=== PATIENT | female | born 1935 | race Caucasian/White ===

== ENCOUNTER 2017-08-22 14:41 | Inpatient (IN) ==
[2017-08-22] MEDS ORDERED: ONDANSETRON 4 MG/2 ML VIAL IV PRN (16:09)
[2017-08-22] MEDS ORDERED: ACETAMINOPHEN 325 MG TABLET PO PRN (16:09)
[2017-08-22] MEDS ORDERED: MELOXICAM 7.5 MG TABLET PO PRN (17:41)
[2017-08-22 18:08] LABS: Basophils # 0.1 10*3/uL (0.0-0.2); Basophils % 0.9 % (0.0-0.8); Eosinophils # 0.6 10*3/uL (0.0-0.87); Eosinophils % 11.1 % (0.00-10.9); Hemoglobin 12.5 GM/DL (12.0-16.0); Immature Granulocytes % 0.6 %; Immature Granulocytes Absolute 0.03 #; Lymphocytes # 0.9 10*3/uL (1.4-4.0); Lymphocytes % 16.3 % (21.3-54.2); Mean Corpuscular HGB Conc 33.8 GM/DL (32-36); Mean Corpuscular Hemoglobin 31 PG (27-34); Mean Corpuscular Volume 91.4 FL (87-102); Monocytes # 0.5 10*3/uL (0.11-0.8); Monocytes % 9.5 % (1.7-12.7); Neutrophils # 3.3 10*3/uL (1.4-7.4); Neutrophils % 61.6 % (38.7-73.9); Platelet Count 206 T/CUMM (130-400); Red Blood Count 4.05 MC/CUMM (3.8-5.5); Red Cell Distribution Width 14.1 % (9.3-17.3); White Blood Count 5.4 T/CUMM (4-12)
[2017-08-22 18:27] LABS: Albumin 3.7 G/DL (3.4-5.0); Bilirubin,Total 0.9 MG/DL (0.2-1.0); Calcium 9.2 MG/DL (8.5-10.1); Osmolality,Calculated 279.5 MOS/KG (273-304); Total Protein 7.3 G/DL (6.4-8.3)
[2017-08-22] MEDS ORDERED: ALBUTEROL 2.5 MG/3 ML NEB RESP TX SCH (19:00)
[2017-08-22] MEDS ORDERED: IPRATROPIUM 500 MCG/2.5 ML NEB RESP TX SCH (19:00)
[2017-08-22] MEDS: methylPREDNISolone SOD SUC 40 MG/1 ML VIAL IV SCH (19:50)
[2017-08-22] MEDS: LEVOFLOXACIN INJ 500 MG in PREMIX 1 EACH IV SCH (19:50)
[2017-08-22] MEDS: SODIUM CHLORIDE 0.45% 1,000 ML IV SCH (19:50)
[2017-08-22] MEDS: ALBUTEROL/IPRATROPIUM 3 ML NEB RESP TX SCH (20:09)
[2017-08-22 20:31] LABS: Apearance,Urine Slightly Hazy (Clear); Bilirubin,Urine Negative (Negative); Blood, Urine Negative (Negative); Glucose,Urine (UA) Negative (Negative); Ketones,Urine Negative (Negative); Mucus,Urine Occasional /LPF (Occasional); Nitrite,Urine Negative (Negative); Protein,Urine Negative; Squamous Epithelial Cell,Urine Occasional /HPF (0-10); Urine Color Yellow (Yellow); Urine Specific Gravity 1.011 (1.001-1.035); Urine Urobilinogen < 2.0 EU/DL (0.2-1.0); WBC,Urine <1 /HPF (0-6)
[2017-08-22] MEDS: HYDROcodone/HOMATROPINE 5 ML UDCUP PO PRN (21:00)
[2017-08-22] MEDS: DOCUSATE SODIUM 100 MG CAPSULE PO SCH (21:01)
[2017-08-22] MEDS: LOSARTAN 50 MG TABLET PO SCH (21:01)
[2017-08-22] MEDS: ASPIRIN EC 81 MG TABLET PO SCH (21:01)
[2017-08-22] MEDS: amLODIPine 5 MG TABLET PO SCH (21:01)
[2017-08-22] MEDS: MONTELUKAST 10 MG TABLET PO SCH (21:01)
[2017-08-22] MEDS: ENOXAPARIN 40 MG/0.4 ML SYRINGE SUBCUT SCH (21:01)
[2017-08-22 21:16] LABS: Eosinophils 7 % (0-10); Lymphocytes 12 % (20-55); Platelet Estimate Adequate; Segmented Neutrophils 76 % (50-85); Total Cells Counted 100
[2017-08-22 21:17] LABS: Polychromasia Few
[2017-08-23] MEDS: ALBUTEROL/IPRATROPIUM 3 ML NEB RESP TX SCH ×4 (00:33→19:00)
[2017-08-23] MEDS: methylPREDNISolone SOD SUC 40 MG/1 ML VIAL IV SCH ×3 (01:46→17:25)
[2017-08-23] MEDS: HYDROcodone/HOMATROPINE 5 ML UDCUP PO PRN ×2 (02:32→21:24)
[2017-08-23] MEDS: LEVOTHYROXINE 125 MCG TABLET PO SCH (06:14)
[2017-08-23 06:47] LABS: CKMB % 1.4 %
[2017-08-23] MEDS ORDERED: NON-FORMULARY MEDICATION (Fluticasone/Vilanterol [Breo Ellipta 200-25 Mcg Inh] 1 PUFF) INH SCH (09:00)
[2017-08-23] MEDS: CHOLECALCIFEROL 1,000 UNIT TABLET PO SCH (09:22)
[2017-08-23] MEDS: DOCUSATE SODIUM 100 MG CAPSULE PO SCH ×2 (09:23→21:24)
[2017-08-23] MEDS: PANTOPRAZOLE 40 MG TABLET PO SCH (09:23)
[2017-08-23] MEDS: MAGNESIUM GLUCONATE 500 MG TABLET PO SCH (09:23)
[2017-08-23] MEDS: MULTIVITAMIN (CENTRUM) TABLET PO SCH (09:23)
[2017-08-23] MEDS: FUROSEMIDE 40 MG TABLET PO SCH (09:23)
[2017-08-23] MEDS: SELENIUM 200 MCG TABLET PO SCH (09:23)
[2017-08-23] MEDS: FLUoxetine 20 MG CAPSULE PO SCH (09:23)
[2017-08-23] MEDS: LOSARTAN 50 MG TABLET PO SCH (09:23)
[2017-08-23] MEDS: POTASSIUM CHLORIDE 10 MEQ TABLET PO SCH (09:23)
[2017-08-23] MEDS: ASPIRIN EC 81 MG TABLET PO SCH ×2 (09:24→21:24)
[2017-08-23] MEDS: amLODIPine 5 MG TABLET PO SCH ×2 (09:24→21:24)
[2017-08-23 09:39] LABS: CKMB % 1.6 %
[2017-08-23] MEDS ORDERED: BENZONATATE 100 MG CAPSULE PO ONE (10:52)
[2017-08-23 13:15] LABS: CKMB % 1.6 %
[2017-08-23] MEDS: hydrALAZINE 25 MG TABLET PO SCH ×2 (14:49→21:24)
[2017-08-23 16:34] LABS: CKMB % 1.6 %
[2017-08-23] MEDS: MAGNESIUM HYDROXIDE SUSP 30 ML UDCUP PO PRN (17:23)
[2017-08-23] MEDS: LEVOFLOXACIN INJ 500 MG in PREMIX 1 EACH IV SCH (17:24)
[2017-08-23] MEDS: traMADol 50 MG TABLET PO PRN (18:08)
[2017-08-23] MEDS: MONTELUKAST 10 MG TABLET PO SCH (21:24)
[2017-08-23] MEDS: ENOXAPARIN 40 MG/0.4 ML SYRINGE SUBCUT SCH (21:25)
[2017-08-23] MEDS: SODIUM CHLORIDE 0.45% 1,000 ML IV SCH (23:32)
[2017-08-24] MEDS: ALBUTEROL/IPRATROPIUM 3 ML NEB RESP TX SCH ×4 (00:49→19:27)
[2017-08-24] MEDS: methylPREDNISolone SOD SUC 40 MG/1 ML VIAL IV SCH ×3 (01:01→16:52)
[2017-08-24] MEDS: LEVOTHYROXINE 125 MCG TABLET PO SCH (06:28)
[2017-08-24] MEDS: NITROGLYCERIN SL 0.4 MG TABLET SL PRN ×2 (08:57→20:14)
[2017-08-24] MEDS: CHOLECALCIFEROL 1,000 UNIT TABLET PO SCH (09:09)
[2017-08-24] MEDS: hydrALAZINE 25 MG TABLET PO SCH ×3 (09:10→21:24)
[2017-08-24] MEDS: FUROSEMIDE 40 MG TABLET PO SCH (09:10)
[2017-08-24] MEDS: SELENIUM 200 MCG TABLET PO SCH (09:10)
[2017-08-24] MEDS: ASPIRIN EC 81 MG TABLET PO SCH ×2 (09:10→21:23)
[2017-08-24] MEDS: PANTOPRAZOLE 40 MG TABLET PO SCH (09:11)
[2017-08-24] MEDS: FLUoxetine 20 MG CAPSULE PO SCH (09:11)
[2017-08-24] MEDS: DOCUSATE SODIUM 100 MG CAPSULE PO SCH ×2 (09:12→21:23)
[2017-08-24] MEDS: POTASSIUM CHLORIDE 10 MEQ TABLET PO SCH (09:12)
[2017-08-24] MEDS: MAGNESIUM GLUCONATE 500 MG TABLET PO SCH (09:12)
[2017-08-24] MEDS: MULTIVITAMIN (CENTRUM) TABLET PO SCH (09:13)
[2017-08-24] MEDS: amLODIPine 5 MG TABLET PO SCH ×2 (10:39→21:24)
[2017-08-24] MEDS: HYDROcodone/HOMATROPINE 5 ML UDCUP PO PRN ×2 (10:45→16:48)
[2017-08-24] MEDS: SODIUM CHLORIDE 0.45% 1,000 ML IV SCH (10:46)
[2017-08-24 13:28] LABS: Calcium 8.6 MG/DL (8.5-10.1); Osmolality,Calculated 279.7 MOS/KG (273-304); Potassium 3.5 MMOL/L (3.5-5.1); Thyroid Stimulating Hormone 1.92 uIU/ml (0.358-3.74)
[2017-08-24] MEDS: BENZONATATE 100 MG CAPSULE PO PRN (14:42)
[2017-08-24] MEDS: LEVOFLOXACIN INJ 500 MG in PREMIX 1 EACH IV SCH (16:51)
[2017-08-24] MEDS: ENOXAPARIN 40 MG/0.4 ML SYRINGE SUBCUT SCH (21:21)
[2017-08-24] MEDS: MONTELUKAST 10 MG TABLET PO SCH (21:23)
[2017-08-24] MEDS: TEMAZEPAM 15 MG CAPSULE PO PRN (21:24)
[2017-08-25] MEDS: BUDESONIDE/FORMOTEROL 160-4.5 INHALER 6 GM INH SCH ×2 (00:20→09:27)
[2017-08-25] MEDS: methylPREDNISolone SOD SUC 40 MG/1 ML VIAL IV SCH ×3 (00:23→17:08)
[2017-08-25] MEDS: ALBUTEROL/IPRATROPIUM 3 ML NEB RESP TX SCH ×4 (01:32→19:53)
[2017-08-25] MEDS: HYDROcodone/HOMATROPINE 5 ML UDCUP PO PRN ×4 (01:53→23:20)
[2017-08-25] MEDS: LEVOTHYROXINE 125 MCG TABLET PO SCH (06:18)
[2017-08-25 06:22] LABS: Calcium 8.8 MG/DL (8.5-10.1); Osmolality,Calculated 283.5 MOS/KG (273-304)
[2017-08-25] MEDS: amLODIPine 5 MG TABLET PO SCH ×2 (09:26→21:09)
[2017-08-25] MEDS: PANTOPRAZOLE 40 MG TABLET PO SCH (09:26)
[2017-08-25] MEDS: POTASSIUM CHLORIDE 10 MEQ TABLET PO SCH (09:26)
[2017-08-25] MEDS: hydrALAZINE 25 MG TABLET PO SCH ×3 (09:26→21:09)
[2017-08-25] MEDS: FLUoxetine 20 MG CAPSULE PO SCH (09:26)
[2017-08-25] MEDS: CHOLECALCIFEROL 1,000 UNIT TABLET PO SCH (09:26)
[2017-08-25] MEDS: MULTIVITAMIN (CENTRUM) TABLET PO SCH (09:26)
[2017-08-25] MEDS: DOCUSATE SODIUM 100 MG CAPSULE PO SCH ×2 (09:26→21:09)
[2017-08-25] MEDS: SELENIUM 200 MCG TABLET PO SCH (09:26)
[2017-08-25] MEDS: MAGNESIUM GLUCONATE 500 MG TABLET PO SCH (09:26)
[2017-08-25] MEDS: FUROSEMIDE 40 MG TABLET PO SCH (09:26)
[2017-08-25] MEDS: ASPIRIN EC 81 MG TABLET PO SCH ×2 (09:27→21:09)
[2017-08-25] MEDS: ALBUTEROL 2.5 MG/3 ML NEB RESP TX PRN (10:04)
[2017-08-25] MEDS: traMADol 50 MG TABLET PO PRN (11:53)
[2017-08-25] MEDS: BENZONATATE 100 MG CAPSULE PO PRN (14:44)
[2017-08-25] MEDS: LEVOFLOXACIN INJ 500 MG in PREMIX 1 EACH IV SCH (17:10)
[2017-08-25] MEDS: MAGNESIUM HYDROXIDE SUSP 30 ML UDCUP PO PRN (21:09)
[2017-08-25] MEDS: TEMAZEPAM 15 MG CAPSULE PO PRN (21:09)
[2017-08-25] MEDS: MONTELUKAST 10 MG TABLET PO SCH (21:09)
[2017-08-25] MEDS: ENOXAPARIN 40 MG/0.4 ML SYRINGE SUBCUT SCH (21:11)
[2017-08-25] MEDS: NON-FORMULARY MEDICATION (Fluticasone/Vilanterol [Breo Ellipta 200-25 Mcg Inh] 1 PUFF) INH SCH (21:11)
[2017-08-26] MEDS: ALBUTEROL/IPRATROPIUM 3 ML NEB RESP TX SCH ×4 (00:08→18:50)
[2017-08-26] MEDS: methylPREDNISolone SOD SUC 40 MG/1 ML VIAL IV SCH ×3 (00:13→17:55)
[2017-08-26] MEDS: BENZONATATE 100 MG CAPSULE PO PRN ×3 (04:42→21:37)
[2017-08-26] MEDS: LEVOTHYROXINE 125 MCG TABLET PO SCH (06:14)
[2017-08-26] MEDS: MAGNESIUM GLUCONATE 500 MG TABLET PO SCH (08:08)
[2017-08-26] MEDS: MULTIVITAMIN (CENTRUM) TABLET PO SCH (08:08)
[2017-08-26] MEDS: POTASSIUM CHLORIDE 10 MEQ TABLET PO SCH (08:09)
[2017-08-26] MEDS: SELENIUM 200 MCG TABLET PO SCH (08:09)
[2017-08-26] MEDS: CHOLECALCIFEROL 1,000 UNIT TABLET PO SCH (08:09)
[2017-08-26] MEDS: PANTOPRAZOLE 40 MG TABLET PO SCH (08:10)
[2017-08-26] MEDS: DOCUSATE SODIUM 100 MG CAPSULE PO SCH ×2 (08:10→21:37)
[2017-08-26] MEDS: FLUoxetine 20 MG CAPSULE PO SCH (08:10)
[2017-08-26] MEDS: hydrALAZINE 25 MG TABLET PO SCH ×3 (08:10→21:37)
[2017-08-26] MEDS: amLODIPine 5 MG TABLET PO SCH ×2 (08:10→21:37)
[2017-08-26] MEDS: ASPIRIN EC 81 MG TABLET PO SCH ×2 (08:10→21:37)
[2017-08-26] MEDS: FUROSEMIDE 40 MG TABLET PO SCH (08:11)
[2017-08-26] MEDS: ALBUTEROL 2.5 MG/3 ML NEB RESP TX PRN ×2 (10:18→22:56)
[2017-08-26] MEDS: HYDROcodone/HOMATROPINE 5 ML UDCUP PO PRN ×2 (13:41→21:42)
[2017-08-26] MEDS: LEVOFLOXACIN INJ 500 MG in PREMIX 1 EACH IV SCH (17:55)
[2017-08-26] MEDS: PRAVASTATIN 20 MG TABLET PO SCH (21:37)
[2017-08-26] MEDS: ENOXAPARIN 40 MG/0.4 ML SYRINGE SUBCUT SCH (21:37)
[2017-08-26] MEDS: NON-FORMULARY MEDICATION (Fluticasone/Vilanterol [Breo Ellipta 200-25 Mcg Inh] 1 PUFF) INH SCH (21:37)
[2017-08-26] MEDS: MONTELUKAST 10 MG TABLET PO SCH (21:37)
[2017-08-26] MEDS: TEMAZEPAM 15 MG CAPSULE PO PRN (21:45)
[2017-08-27] MEDS ORDERED: ALBUTEROL/IPRATROPIUM 3 ML NEB RESP TX ONE
[2017-08-27] MEDS: methylPREDNISolone SOD SUC 40 MG/1 ML VIAL IV SCH ×3 (00:06→15:18)
[2017-08-27] MEDS: ALBUTEROL/IPRATROPIUM 3 ML NEB RESP TX SCH ×4 (00:30→18:30)
[2017-08-27] MEDS: LEVOTHYROXINE 125 MCG TABLET PO SCH (06:10)
[2017-08-27] MEDS: HYDROcodone/HOMATROPINE 5 ML UDCUP PO PRN ×3 (06:16→21:20)
[2017-08-27] MEDS: BENZONATATE 100 MG CAPSULE PO PRN (08:07)
[2017-08-27] MEDS: SELENIUM 200 MCG TABLET PO SCH (08:08)
[2017-08-27] MEDS: FUROSEMIDE 40 MG TABLET PO SCH (08:09)
[2017-08-27] MEDS: DOCUSATE SODIUM 100 MG CAPSULE PO SCH ×2 (08:09→21:20)
[2017-08-27] MEDS: FLUoxetine 20 MG CAPSULE PO SCH (08:09)
[2017-08-27] MEDS: MAGNESIUM GLUCONATE 500 MG TABLET PO SCH (08:09)
[2017-08-27] MEDS: MULTIVITAMIN (CENTRUM) TABLET PO SCH (08:09)
[2017-08-27] MEDS: POTASSIUM CHLORIDE 10 MEQ TABLET PO SCH (08:09)
[2017-08-27] MEDS: hydrALAZINE 25 MG TABLET PO SCH ×3 (08:09→21:20)
[2017-08-27] MEDS: PANTOPRAZOLE 40 MG TABLET PO SCH (08:09)
[2017-08-27] MEDS: CHOLECALCIFEROL 1,000 UNIT TABLET PO SCH (08:09)
[2017-08-27] MEDS: amLODIPine 5 MG TABLET PO SCH ×2 (08:09→21:20)
[2017-08-27] MEDS: ASPIRIN EC 81 MG TABLET PO SCH ×2 (08:10→21:20)
[2017-08-27] MEDS: ALBUTEROL 2.5 MG/3 ML NEB RESP TX PRN ×3 (10:35→23:45)
[2017-08-27] MEDS: traMADol 50 MG TABLET PO PRN (16:53)
[2017-08-27] MEDS: LEVOFLOXACIN INJ 500 MG in PREMIX 1 EACH IV SCH (17:27)
[2017-08-27] MEDS: LEVOFLOXACIN 500 MG TABLET PO SCH (17:51)
[2017-08-27] MEDS: ENOXAPARIN 40 MG/0.4 ML SYRINGE SUBCUT SCH (21:20)
[2017-08-27] MEDS: TEMAZEPAM 15 MG CAPSULE PO PRN (21:20)
[2017-08-27] MEDS: PRAVASTATIN 20 MG TABLET PO SCH (21:20)
[2017-08-27] MEDS: MONTELUKAST 10 MG TABLET PO SCH (21:20)
[2017-08-27] MEDS: NON-FORMULARY MEDICATION (Fluticasone/Vilanterol [Breo Ellipta 200-25 Mcg Inh] 1 PUFF) INH SCH (21:22)
[2017-08-27] MEDS: predniSONE 20 MG TABLET PO SCH (22:57)
[2017-08-28] MEDS: ALBUTEROL/IPRATROPIUM 3 ML NEB RESP TX SCH ×4 (01:11→19:29)
[2017-08-28] MEDS: ALBUTEROL 2.5 MG/3 ML NEB RESP TX PRN (05:20)
[2017-08-28] MEDS: LEVOTHYROXINE 125 MCG TABLET PO SCH (06:14)
[2017-08-28] MEDS ORDERED: GLYCOPYRROLATE 0.4 MG/2 ML VIAL IM ONE (07:00)
[2017-08-28] MEDS ORDERED: PROMETHAZINE 25 MG/1 ML VIAL IM ONE (07:00)
[2017-08-28] MEDS ORDERED: MEPERIDINE 50 MG/1 ML VIAL IM ONE (07:00)
[2017-08-28] MEDS ORDERED: LIDOCAINE 2% 20 ML VIAL RESP TX ONE (07:30)
[2017-08-28] MEDS ORDERED: MIDAZOLAM 2 MG/2 ML VIAL IV ONE (07:30)
[2017-08-28] MEDS ORDERED: LIDOCAINE 2% VISCOUS 100 ML BOTTLE SWISH/SPIT ONE (07:30)
[2017-08-28] MEDS ORDERED: LIDOCAINE 1% 20 ML VIAL MISC INJ ONE (07:30)
[2017-08-28] MEDS: POTASSIUM CHLORIDE 10 MEQ TABLET PO SCH (10:00)
[2017-08-28] MEDS: LEVOFLOXACIN 500 MG TABLET PO SCH (10:00)
[2017-08-28] MEDS: ASPIRIN EC 81 MG TABLET PO SCH ×2 (10:00→21:36)
[2017-08-28] MEDS: hydrALAZINE 25 MG TABLET PO SCH ×3 (10:00→21:38)
[2017-08-28] MEDS: DOCUSATE SODIUM 100 MG CAPSULE PO SCH ×2 (10:00→21:36)
[2017-08-28] MEDS: MULTIVITAMIN (CENTRUM) TABLET PO SCH (10:00)
[2017-08-28] MEDS: SELENIUM 200 MCG TABLET PO SCH (10:01)
[2017-08-28] MEDS: FUROSEMIDE 40 MG TABLET PO SCH (10:01)
[2017-08-28] MEDS: predniSONE 20 MG TABLET PO SCH (10:01)
[2017-08-28] MEDS: FLUoxetine 20 MG CAPSULE PO SCH (10:01)
[2017-08-28] MEDS: amLODIPine 5 MG TABLET PO SCH ×2 (10:01→21:36)
[2017-08-28] MEDS: MAGNESIUM GLUCONATE 500 MG TABLET PO SCH (10:01)
[2017-08-28] MEDS: PANTOPRAZOLE 40 MG TABLET PO SCH (10:01)
[2017-08-28] MEDS: CHOLECALCIFEROL 1,000 UNIT TABLET PO SCH (10:02)
[2017-08-28] MEDS ORDERED: MIDAZOLAM 2 MG/2 ML VIAL ONE (12:18)
[2017-08-28] MEDS: TEMAZEPAM 15 MG CAPSULE PO PRN (21:35)
[2017-08-28] MEDS: traMADol 50 MG TABLET PO PRN (21:35)
[2017-08-28] MEDS: MONTELUKAST 10 MG TABLET PO SCH (21:35)
[2017-08-28] MEDS: PRAVASTATIN 20 MG TABLET PO SCH (21:37)
[2017-08-28] MEDS: NON-FORMULARY MEDICATION (Fluticasone/Vilanterol [Breo Ellipta 200-25 Mcg Inh] 1 PUFF) INH SCH (21:39)
[2017-08-28] MEDS: ENOXAPARIN 40 MG/0.4 ML SYRINGE SUBCUT SCH (21:41)
[2017-08-29] MEDS: ALBUTEROL/IPRATROPIUM 3 ML NEB RESP TX SCH ×4 (01:00→19:33)
[2017-08-29] MEDS: LEVOTHYROXINE 125 MCG TABLET PO SCH (06:39)
[2017-08-29] MEDS: CHOLECALCIFEROL 1,000 UNIT TABLET PO SCH (09:13)
[2017-08-29] MEDS: PANTOPRAZOLE 40 MG TABLET PO SCH (09:14)
[2017-08-29] MEDS: MULTIVITAMIN (CENTRUM) TABLET PO SCH (09:14)
[2017-08-29] MEDS: DOCUSATE SODIUM 100 MG CAPSULE PO SCH ×2 (09:14→22:08)
[2017-08-29] MEDS: LEVOFLOXACIN 500 MG TABLET PO SCH (09:14)
[2017-08-29] MEDS: ASPIRIN EC 81 MG TABLET PO SCH ×2 (09:14→22:09)
[2017-08-29] MEDS: SELENIUM 200 MCG TABLET PO SCH (09:14)
[2017-08-29] MEDS: FUROSEMIDE 40 MG TABLET PO SCH (09:14)
[2017-08-29] MEDS: MAGNESIUM GLUCONATE 500 MG TABLET PO SCH (09:14)
[2017-08-29] MEDS: POTASSIUM CHLORIDE 10 MEQ TABLET PO SCH (09:14)
[2017-08-29] MEDS: predniSONE 20 MG TABLET PO SCH (09:15)
[2017-08-29] MEDS: hydrALAZINE 25 MG TABLET PO SCH ×3 (09:15→22:08)
[2017-08-29] MEDS: amLODIPine 5 MG TABLET PO SCH ×2 (09:15→22:11)
[2017-08-29] MEDS: FLUoxetine 20 MG CAPSULE PO SCH (09:15)
[2017-08-29] MEDS: traMADol 50 MG TABLET PO PRN (09:18)
[2017-08-29] MEDS: TEMAZEPAM 15 MG CAPSULE PO PRN (22:07)
[2017-08-29] MEDS: PRAVASTATIN 20 MG TABLET PO SCH (22:08)
[2017-08-29] MEDS: MONTELUKAST 10 MG TABLET PO SCH (22:08)
[2017-08-29] MEDS: HYDROcodone/HOMATROPINE 5 ML UDCUP PO PRN (22:12)
[2017-08-29] MEDS: ENOXAPARIN 40 MG/0.4 ML SYRINGE SUBCUT SCH (22:12)
[2017-08-29] MEDS: NON-FORMULARY MEDICATION (Fluticasone/Vilanterol [Breo Ellipta 200-25 Mcg Inh] 1 PUFF) INH SCH (22:15)
[2017-08-30] MEDS: traMADol 50 MG TABLET PO PRN (01:41)
[2017-08-30] MEDS: LEVOTHYROXINE 125 MCG TABLET PO SCH (06:28)
[2017-08-30] MEDS: ALBUTEROL/IPRATROPIUM 3 ML NEB RESP TX SCH ×2 (06:57)
[2017-08-30 07:50] VITALS: BP 174/63
[2017-08-30] MEDS: SELENIUM 200 MCG TABLET PO SCH (09:19)
[2017-08-30] MEDS: CHOLECALCIFEROL 1,000 UNIT TABLET PO SCH (09:19)
[2017-08-30] MEDS: predniSONE 20 MG TABLET PO SCH (09:19)
[2017-08-30] MEDS: MULTIVITAMIN (CENTRUM) TABLET PO SCH (09:19)
[2017-08-30] MEDS: hydrALAZINE 25 MG TABLET PO SCH (09:19)
[2017-08-30] MEDS: amLODIPine 5 MG TABLET PO SCH (09:19)
[2017-08-30] MEDS: ASPIRIN EC 81 MG TABLET PO SCH (09:20)
[2017-08-30] MEDS: PANTOPRAZOLE 40 MG TABLET PO SCH (09:20)
[2017-08-30] MEDS: FLUoxetine 20 MG CAPSULE PO SCH (09:20)
[2017-08-30] MEDS: POTASSIUM CHLORIDE 10 MEQ TABLET PO SCH (09:20)
[2017-08-30] MEDS: FUROSEMIDE 40 MG TABLET PO SCH (09:20)
[2017-08-30] MEDS: LEVOFLOXACIN 500 MG TABLET PO SCH (09:20)
[2017-08-30] MEDS: DOCUSATE SODIUM 100 MG CAPSULE PO SCH (09:20)
[2017-08-30] MEDS: MAGNESIUM GLUCONATE 500 MG TABLET PO SCH (09:24)
== END 2017-08-30 10:10 | disposition home or self-care (01) | DRG 202 ==
LOC: N.2E 16:23
PROVIDERS: ADMIT Family Medicine; ATTEND Family Medicine

== ENCOUNTER 2017-12-15 10:49 | Inpatient (IN) ==
[2017-12-15] MEDS ORDERED: methylPREDNISolone SOD SUC 125 MG/2 ML VIAL IV STA (13:17)
[2017-12-15] MEDS ORDERED: ALBUTEROL/IPRATROPIUM 3 ML NEB RESP TX STA (13:17)
[2017-12-15 13:37] LABS: Basophils % 0.4 % (0.0-0.8); Eosinophils % 0.2 % (0.00-10.9); Hematocrit 35.8 VOL% (35.7-47.0); Hemoglobin 11.7 GM/DL (12.0-16.0); Immature Granulocytes % 1.6 %; Immature Granulocytes Absolute 0.17 #; Lymphocytes # 0.4 10*3/uL (1.4-4.0); Mean Corpuscular HGB Conc 32.7 GM/DL (32-36); Mean Corpuscular Hemoglobin 29 PG (27-34); Mean Corpuscular Volume 89.5 FL (87-102); Mean Platelet Volume 11.2 FL (9.6-12.0); Monocytes # 0.5 10*3/uL (0.11-0.8); Monocytes % 5.1 % (1.7-12.7); Neutrophils # 9.3 10*3/uL (1.4-7.4); Neutrophils % 88.7 % (38.7-73.9); Platelet Count 214 T/CUMM (130-400); Red Cell Distribution Width 13.9 % (9.3-17.3); White Blood Count 10.5 T/CUMM (4-12)
[2017-12-15 13:56] LABS: Albumin 3.6 G/DL (3.4-5.0); Calcium 8.6 MG/DL (8.5-10.1); Osmolality,Calculated 266.7 MOS/KG (273-304); Potassium 4.1 MMOL/L (3.5-5.1); Total Protein 6.9 G/DL (6.4-8.3)
[2017-12-15 14:00] LABS: Atypical Lymphocytes Few; Lymphocytes 8 % (20-55); Platelet Estimate Adequate; Segmented Neutrophils 89 % (50-85); Total Cells Counted 100
[2017-12-15] MEDS ORDERED: ONDANSETRON 4 MG/2 ML VIAL IV PRN (16:02)
[2017-12-15] MEDS ORDERED: PIPERACILLIN/TAZOBACTAM 3,375 MG in SODIUM CHLORIDE 0.9% 100 ML IV STA (16:02)
[2017-12-15] MEDS ORDERED: ACETAMINOPHEN 325 MG TABLET PO PRN ×2 (16:02→16:06)
[2017-12-15] MEDS ORDERED: NITROGLYCERIN SL 0.4 MG TABLET SL PRN (16:06)
[2017-12-15] MEDS ORDERED: MELOXICAM 7.5 MG TABLET PO PRN (16:06)
[2017-12-15] MEDS ORDERED: MAGNESIUM HYDROXIDE SUSP 30 ML UDCUP PO PRN (16:06)
[2017-12-15] MEDS ORDERED: methylPREDNISolone SOD SUC 125 MG/2 ML VIAL IV SCH (16:30)
[2017-12-15] MEDS: ALBUTEROL/IPRATROPIUM 3 ML NEB RESP TX SCH (19:41)
[2017-12-15] MEDS ORDERED: NON-FORMULARY MEDICATION (Fluticasone/Vilanterol [Breo Ellipta 200-25 Mcg Inh] 1 PUFF) INH SCH (21:00)
[2017-12-15] MEDS: DOCUSATE SODIUM 100 MG CAPSULE PO SCH (21:12)
[2017-12-15] MEDS: MONTELUKAST 10 MG TABLET PO SCH (21:12)
[2017-12-15] MEDS: guaiFENesin 200 MG/10 ML UDCUP PO PRN (21:12)
[2017-12-15] MEDS: MULTIVITAMIN (OCUVITE) TABLET PO SCH (21:12)
[2017-12-15] MEDS: PRAVASTATIN 20 MG TABLET PO SCH (21:13)
[2017-12-15] MEDS: ASPIRIN EC 81 MG TABLET PO SCH (21:13)
[2017-12-15] MEDS: LOSARTAN 50 MG TABLET PO SCH (21:13)
[2017-12-15] MEDS: hydrALAZINE 25 MG TABLET PO SCH (21:13)
[2017-12-15] MEDS: traMADol 50 MG TABLET PO PRN (21:15)
[2017-12-16] MEDS: ALBUTEROL/IPRATROPIUM 3 ML NEB RESP TX SCH ×4 (00:56→19:32)
[2017-12-16] MEDS: guaiFENesin 200 MG/10 ML UDCUP PO PRN ×2 (02:08→06:28)
[2017-12-16] MEDS: PIPERACILLIN/TAZOBACTAM 3,375 MG in SODIUM CHLORIDE 0.9% 100 ML IV SCH ×3 (02:09→17:08)
[2017-12-16] MEDS: LEVOTHYROXINE 125 MCG TABLET PO SCH (06:21)
[2017-12-16] MEDS: ASPIRIN EC 81 MG TABLET PO SCH ×2 (08:15→20:11)
[2017-12-16] MEDS: POTASSIUM CHLORIDE 10 MEQ TABLET PO SCH (08:15)
[2017-12-16] MEDS: SELENIUM 200 MCG TABLET PO SCH (08:15)
[2017-12-16] MEDS: FUROSEMIDE 40 MG TABLET PO SCH (08:15)
[2017-12-16] MEDS: MULTIVITAMIN (OCUVITE) TABLET PO SCH ×2 (08:15→20:11)
[2017-12-16] MEDS: hydrALAZINE 25 MG TABLET PO SCH ×3 (08:16→20:11)
[2017-12-16] MEDS: PANTOPRAZOLE 40 MG TABLET PO SCH (08:16)
[2017-12-16] MEDS: FLUoxetine 20 MG CAPSULE PO SCH (08:16)
[2017-12-16] MEDS: CHOLECALCIFEROL 1,000 UNIT TABLET PO SCH (08:16)
[2017-12-16] MEDS: MAGNESIUM OXIDE 400 MG TABLET PO SCH (08:16)
[2017-12-16] MEDS: MULTIVITAMIN (CENTRUM) TABLET PO SCH (08:16)
[2017-12-16] MEDS: LOSARTAN 50 MG TABLET PO SCH ×2 (08:16→20:11)
[2017-12-16] MEDS: DOCUSATE SODIUM 100 MG CAPSULE PO SCH ×2 (08:16→20:11)
[2017-12-16] MEDS ORDERED: PROMETHAZINE 25 MG/1 ML VIAL IM ONE (08:45)
[2017-12-16] MEDS ORDERED: GLYCOPYRROLATE 0.4 MG/2 ML VIAL IM ONE (08:45)
[2017-12-16] MEDS ORDERED: MEPERIDINE 50 MG/1 ML VIAL IM ONE (08:45)
[2017-12-16] MEDS: traMADol 50 MG TABLET PO PRN ×2 (08:47→20:11)
[2017-12-16] MEDS ORDERED: MIDAZOLAM 2 MG/2 ML VIAL ONE (08:58)
[2017-12-16] MEDS ORDERED: LIDOCAINE 1% 20 ML VIAL MISC INJ ONE (09:00)
[2017-12-16] MEDS ORDERED: LIDOCAINE 2% VISCOUS 100 ML BOTTLE SWISH/SPIT ONE (09:00)
[2017-12-16] MEDS ORDERED: MIDAZOLAM 2 MG/2 ML VIAL IV ONE (09:00)
[2017-12-16] MEDS ORDERED: NON-FORMULARY MEDICATION (Omeprazole [Prilosec] 20 MG) PO SCH (09:00)
[2017-12-16] MEDS ORDERED: LIDOCAINE 2% 20 ML VIAL RESP TX ONE (09:00)
[2017-12-16] MEDS: methylPREDNISolone SOD SUC 40 MG/1 ML VIAL IV SCH ×2 (09:06→17:07)
[2017-12-16] MEDS: PRAVASTATIN 20 MG TABLET PO SCH (20:11)
[2017-12-16] MEDS: MONTELUKAST 10 MG TABLET PO SCH (20:11)
[2017-12-17] MEDS: ALBUTEROL/IPRATROPIUM 3 ML NEB RESP TX SCH ×2 (01:02→07:25)
[2017-12-17] MEDS: methylPREDNISolone SOD SUC 40 MG/1 ML VIAL IV SCH ×2 (01:06→08:19)
[2017-12-17] MEDS: PIPERACILLIN/TAZOBACTAM 3,375 MG in SODIUM CHLORIDE 0.9% 100 ML IV SCH ×2 (01:07→09:02)
[2017-12-17] MEDS: LEVOTHYROXINE 125 MCG TABLET PO SCH (06:45)
[2017-12-17] MEDS: traMADol 50 MG TABLET PO PRN (06:47)
[2017-12-17] MEDS: MULTIVITAMIN (CENTRUM) TABLET PO SCH (08:19)
[2017-12-17] MEDS: FUROSEMIDE 40 MG TABLET PO SCH (08:19)
[2017-12-17] MEDS: LOSARTAN 50 MG TABLET PO SCH (08:19)
[2017-12-17] MEDS: hydrALAZINE 25 MG TABLET PO SCH (08:19)
[2017-12-17] MEDS: FLUoxetine 20 MG CAPSULE PO SCH (08:19)
[2017-12-17] MEDS: SELENIUM 200 MCG TABLET PO SCH (08:19)
[2017-12-17] MEDS: ASPIRIN EC 81 MG TABLET PO SCH (08:19)
[2017-12-17] MEDS: MULTIVITAMIN (OCUVITE) TABLET PO SCH (08:19)
[2017-12-17] MEDS: PANTOPRAZOLE 40 MG TABLET PO SCH (08:19)
[2017-12-17] MEDS: DOCUSATE SODIUM 100 MG CAPSULE PO SCH (08:19)
[2017-12-17] MEDS: POTASSIUM CHLORIDE 10 MEQ TABLET PO SCH (08:19)
[2017-12-17] MEDS: CHOLECALCIFEROL 1,000 UNIT TABLET PO SCH (08:19)
[2017-12-17] MEDS: MAGNESIUM OXIDE 400 MG TABLET PO SCH (08:19)
[2017-12-17 08:30] VITALS: BP 171/60
== END 2017-12-17 09:40 | disposition home or self-care (01) | DRG 167 ==
LOC: N.ED 10:49 → N.EDINP 16:02 → N.2E 16:40 → N.5E 17:32
PROVIDERS: ADMIT Family Medicine; ATTEND Family Medicine

== ENCOUNTER 2017-12-19 13:21 | Observation (INO) ==
[2017-12-19] MEDS ORDERED: ONDANSETRON 4 MG/2 ML VIAL IV STA (14:03)
[2017-12-19] MEDS ORDERED: HYDROmorphone 2 MG/1 ML VIAL IV STA (14:03)
[2017-12-19 14:20] LABS: Basophils % 0.3 % (0.0-0.8); Eosinophils # 0.1 10*3/uL (0.0-0.87); Eosinophils % 0.5 % (0.00-10.9); Hematocrit 40.4 VOL% (35.7-47.0); Hemoglobin 13.1 GM/DL (12.0-16.0); Immature Granulocytes % 1.9 %; Immature Granulocytes Absolute 0.21 #; Lymphocytes # 0.6 10*3/uL (1.4-4.0); Mean Corpuscular HGB Conc 32.4 GM/DL (32-36); Mean Corpuscular Hemoglobin 29 PG (27-34); Mean Corpuscular Volume 90.4 FL (87-102); Mean Platelet Volume 10.7 FL (9.6-12.0); Monocytes # 0.4 10*3/uL (0.11-0.8); Neutrophils # 9.7 10*3/uL (1.4-7.4); Neutrophils % 88.3 % (38.7-73.9); Platelet Count 243 T/CUMM (130-400); Red Blood Count 4.47 MC/CUMM (3.8-5.5); Red Cell Distribution Width 13.9 % (9.3-17.3)
[2017-12-19 14:40] LABS: Albumin 3.7 G/DL (3.4-5.0); Bilirubin,Total 0.6 MG/DL (0.2-1.0); Calcium 8.9 MG/DL (8.5-10.1); Potassium 4.3 MMOL/L (3.5-5.1); Total Protein 7.1 G/DL (6.4-8.3)
[2017-12-19 14:43] LABS: INR 0.9; PT Patient Result 9.9 SECS; Partial Thromboplastin Time 24.9 SECS (0-40)
[2017-12-19] MEDS ORDERED: ALBUTEROL 2.5 MG/3 ML NEB RESP TX PRN (18:22)
[2017-12-19] MEDS ORDERED: NITROGLYCERIN SL 0.4 MG TABLET SL PRN (18:22)
[2017-12-19] MEDS ORDERED: MELOXICAM 7.5 MG TABLET PO PRN (18:22)
[2017-12-19] MEDS ORDERED: guaiFENesin 200 MG/10 ML UDCUP PO PRN (18:22)
[2017-12-19] MEDS ORDERED: ACETAMINOPHEN 325 MG TABLET PO PRN ×2 (18:22)
[2017-12-19] MEDS: SODIUM CHLORIDE 0.9% 1,000 ML IV SCH (18:29)
[2017-12-19] MEDS ORDERED: cloNIDine 0.1 MG TABLET PO PRN (18:50)
[2017-12-19] MEDS: HYDROmorphone 2 MG/1 ML VIAL IV PRN (19:44)
[2017-12-19] MEDS: LOSARTAN 50 MG TABLET PO SCH (20:42)
[2017-12-19] MEDS: AMOXICILLIN/CLAV 875 MG TABLET PO SCH (20:42)
[2017-12-19] MEDS: ONDANSETRON 4 MG/2 ML VIAL IV PRN (20:43)
[2017-12-19] MEDS: ASPIRIN EC 81 MG TABLET PO SCH (20:43)
[2017-12-19] MEDS: MULTIVITAMIN (OCUVITE) TABLET PO SCH ×2 (20:43→20:44)
[2017-12-19] MEDS: DOCUSATE SODIUM 100 MG CAPSULE PO SCH (20:43)
[2017-12-19] MEDS: MONTELUKAST 10 MG TABLET PO SCH (20:43)
[2017-12-19] MEDS: PRAVASTATIN 40 MG TABLET PO SCH (20:43)
[2017-12-19] MEDS: hydrALAZINE 25 MG TABLET PO SCH (20:43)
[2017-12-19] MEDS ORDERED: Fluticasone/Vilanterol [Breo Ellipta 200-25 Mcg Inh] INH SCH (21:00)
[2017-12-19] MEDS: ALBUTEROL/IPRATROPIUM 3 ML NEB RESP TX SCH (23:09)
[2017-12-20] MEDS: HYDROmorphone 2 MG/1 ML VIAL IV PRN ×2 (01:20→09:43)
[2017-12-20] MEDS: ONDANSETRON 4 MG/2 ML VIAL IV PRN ×2 (04:14→10:24)
[2017-12-20] MEDS: LEVOTHYROXINE 125 MCG TABLET PO SCH (06:25)
[2017-12-20] MEDS: ALBUTEROL/IPRATROPIUM 3 ML NEB RESP TX SCH ×3 (06:49→22:58)
[2017-12-20] MEDS: POTASSIUM CHLORIDE 10 MEQ TABLET PO SCH (08:13)
[2017-12-20] MEDS: SODIUM CHLORIDE 0.9% 1,000 ML IV SCH (08:13)
[2017-12-20] MEDS: FLUoxetine 20 MG CAPSULE PO SCH (08:14)
[2017-12-20] MEDS: SELENIUM 200 MCG TABLET PO SCH (08:14)
[2017-12-20] MEDS: AMOXICILLIN/CLAV 875 MG TABLET PO SCH ×2 (08:14→21:01)
[2017-12-20] MEDS: ASPIRIN EC 81 MG TABLET PO SCH ×2 (08:14→21:02)
[2017-12-20] MEDS: MAGNESIUM OXIDE 400 MG TABLET PO SCH (08:14)
[2017-12-20] MEDS: MULTIVITAMIN (OCUVITE) TABLET PO SCH ×2 (08:14→21:01)
[2017-12-20] MEDS: DOCUSATE SODIUM 100 MG CAPSULE PO SCH ×2 (08:14→21:01)
[2017-12-20] MEDS: predniSONE 20 MG TABLET PO SCH (08:14)
[2017-12-20] MEDS: PANTOPRAZOLE 40 MG TABLET PO SCH (08:14)
[2017-12-20] MEDS: LOSARTAN 50 MG TABLET PO SCH ×2 (08:14→21:02)
[2017-12-20] MEDS: FUROSEMIDE 40 MG TABLET PO SCH (08:15)
[2017-12-20] MEDS: MULTIVITAMIN (CENTRUM) TABLET PO SCH (08:15)
[2017-12-20] MEDS: CHOLECALCIFEROL 1,000 UNIT TABLET PO SCH (08:15)
[2017-12-20] MEDS: hydrALAZINE 25 MG TABLET PO SCH ×3 (08:15→21:02)
[2017-12-20] MEDS: GABAPENTIN 300 MG CAPSULE PO SCH (21:01)
[2017-12-20] MEDS: traMADol 50 MG TABLET PO PRN (21:01)
[2017-12-20] MEDS: MONTELUKAST 10 MG TABLET PO SCH (21:01)
[2017-12-20] MEDS: PRAVASTATIN 40 MG TABLET PO SCH (21:02)
[2017-12-21] MEDS: SODIUM CHLORIDE 0.9% 1,000 ML IV SCH (01:21)
[2017-12-21] MEDS: LEVOTHYROXINE 125 MCG TABLET PO SCH (06:33)
[2017-12-21] MEDS: ALBUTEROL/IPRATROPIUM 3 ML NEB RESP TX SCH (07:04)
[2017-12-21] MEDS: FUROSEMIDE 40 MG TABLET PO SCH (09:41)
[2017-12-21] MEDS: GABAPENTIN 300 MG CAPSULE PO SCH (09:41)
[2017-12-21] MEDS: MULTIVITAMIN (OCUVITE) TABLET PO SCH (09:41)
[2017-12-21] MEDS: DOCUSATE SODIUM 100 MG CAPSULE PO SCH (09:42)
[2017-12-21] MEDS: AMOXICILLIN/CLAV 875 MG TABLET PO SCH (09:42)
[2017-12-21] MEDS: MULTIVITAMIN (CENTRUM) TABLET PO SCH (09:42)
[2017-12-21] MEDS: SELENIUM 200 MCG TABLET PO SCH (09:42)
[2017-12-21] MEDS: PANTOPRAZOLE 40 MG TABLET PO SCH (09:43)
[2017-12-21] MEDS: hydrALAZINE 25 MG TABLET PO SCH (09:43)
[2017-12-21] MEDS: CHOLECALCIFEROL 1,000 UNIT TABLET PO SCH (09:43)
[2017-12-21] MEDS: traMADol 50 MG TABLET PO PRN (09:44)
[2017-12-21] MEDS: predniSONE 20 MG TABLET PO SCH (09:44)
[2017-12-21] MEDS: MAGNESIUM OXIDE 400 MG TABLET PO SCH (09:44)
[2017-12-21] MEDS: FLUoxetine 20 MG CAPSULE PO SCH (09:44)
[2017-12-21] MEDS: ASPIRIN EC 81 MG TABLET PO SCH (09:44)
[2017-12-21] MEDS: POTASSIUM CHLORIDE 10 MEQ TABLET PO SCH (09:45)
[2017-12-21] MEDS: LOSARTAN 50 MG TABLET PO SCH (09:46)
[2017-12-21 13:23] VITALS: BP 140/82
== END 2017-12-21 15:05 | disposition home health service (06) ==
LOC: N.ED 13:21 → N.EDINP 13:21 → N.2E 17:44
PROVIDERS: ADMIT Family Medicine; ATTEND Family Medicine

== ENCOUNTER 2018-08-09 09:36 | Inpatient (IN) ==
[2018-08-09] MEDS ORDERED: MEROPENEM 1,000 MG in SODIUM CHLORIDE 0.9% 100 ML IV STA (09:48)
[2018-08-09] MEDS ORDERED: SODIUM CHLORIDE 0.9% 1,000 ML IV STA (09:51)
[2018-08-09] MEDS ORDERED: MEROPENEM 1,000 MG VIAL IV ONE (10:00)
[2018-08-09] MEDS ORDERED: SODIUM CHLORIDE 0.9% 100 ML IV ONE (10:01)
[2018-08-09 10:23] LABS: Basophils % 0.3 % (0.0-0.8); Eosinophils % 0.2 % (0.00-10.9); Hematocrit 33.7 VOL% (35.7-47.0); Hemoglobin 10.8 GM/DL (12.0-16.0); Immature Granulocytes % 0.6 %; Immature Granulocytes Absolute 0.05 #; Lymphocytes # 0.3 10*3/uL (1.4-4.0); Lymphocytes % 3.6 % (21.3-54.2); Mean Corpuscular Volume 87.1 FL (87-102); Mean Platelet Volume 11.7 FL (9.6-12.0); Monocytes % 9.1 % (1.7-12.7); Neutrophils % 86.2 % (38.7-73.9); Platelet Count 118 T/CUMM (130-400); Red Blood Count 3.87 MC/CUMM (3.8-5.5); Red Cell Distribution Width 13.9 % (9.3-17.3); White Blood Count 8.9 T/CUMM (4-12)
[2018-08-09 10:43] LABS: Alanine Aminotransferase 21 U/L (13-56); Albumin 2.5 G/DL (3.4-5.0); Alkaline Phosphatase 102 U/L (45-117); Aspartate Amino Transferase 27 U/L (0-37); Blood Urea Nitrogen 24 MG/DL (7-18); Calcium 8.4 MG/DL (8.5-10.1); Glucose 148 MG/DL (74-106); Osmolality,Calculated 266.8 MOS/KG (273-304); Total Protein 5.4 G/DL (6.4-8.3)
[2018-08-09] MEDS ORDERED: ACETAMINOPHEN 325 MG TABLET PO PRN (11:20)
[2018-08-09] MEDS ORDERED: ONDANSETRON 4 MG/2 ML VIAL IV PRN ×2 (11:20→14:45)
[2018-08-09 11:23] LABS: Apearance,Urine CLOUDY (Clear); Bacteria,Urine Few /HPF (Few); Bilirubin,Urine Negative (Negative); Blood, Urine Negative (Negative); Glucose,Urine (UA) Negative (Negative); Ketones,Urine Negative (Negative); Nitrite,Urine Positive (Negative); Protein,Urine 100 MG/DL; RBC,Urine 26 /HPF (0-4); Urine Specific Gravity 1.014 (1.001-1.035); WBC,Urine 114 /HPF (0-6)
[2018-08-09] MEDS ORDERED: traMADol 50 MG TABLET PO PRN (11:25)
[2018-08-09 11:27] LABS: Urine Color Orange (Yellow)
[2018-08-09] MEDS ORDERED: NON-FORMULARY MEDICATION (Fluticasone Furoate-Vilanterol [Breo Ellipta] 1 PUFF) INH ONE (11:27)
[2018-08-09] MEDS ORDERED: OMALIZUMAB 150 MG VIAL SUBCUT SCH (11:30)
[2018-08-09] MEDS ORDERED: MEROPENEM 1,000 MG in SODIUM CHLORIDE 0.9% 100 ML IV SCH (11:30)
[2018-08-09] MEDS ORDERED: ENOXAPARIN 30 MG/0.3 ML SYRINGE SUBCUT SCH (11:30)
[2018-08-09] MEDS ORDERED: SODIUM CHLORIDE 0.9% 1,000 ML IV SCH (11:30)
[2018-08-09 12:32] LABS: Band Neutrophils 3 % (0-10); Lymphocytes 2 % (20-55); Segmented Neutrophils 90 % (50-85); Total Cells Counted 100
[2018-08-09 12:33] LABS: Hypochromasia 1+; Microcytosis Slight; Platelet Estimate Adequate
[2018-08-09] MEDS ORDERED: ALBUTEROL/IPRATROPIUM 3 ML NEB RESP TX SCH (15:00)
[2018-08-09] MEDS ORDERED: NITROGLYCERIN SL 0.4 MG TABLET SL PRN (15:11)
[2018-08-09] MEDS ORDERED: ALBUTEROL 2.5 MG/3 ML NEB RESP TX PRN (15:11)
[2018-08-09] MEDS: ENOXAPARIN 30 MG/0.3 ML SYRINGE SUBCUT SCH (17:22)
[2018-08-09] MEDS: SODIUM CHLORIDE 0.9% 1,000 ML IV SCH (17:22)
[2018-08-09] MEDS: ALBUTEROL/IPRATROPIUM 3 ML NEB RESP TX SCH (19:29)
[2018-08-09] MEDS: FLUTICASONE 220 MCG/PUFF INHALER 12 GM INH SCH (20:10)
[2018-08-09] MEDS: ACETAMINOPHEN 325 MG TABLET PO PRN (20:12)
[2018-08-09] MEDS: LOSARTAN 50 MG TABLET PO SCH (20:13)
[2018-08-09] MEDS: SIMVASTATIN 20 MG TABLET PO SCH (20:13)
[2018-08-09] MEDS: ASPIRIN EC 81 MG TABLET PO SCH (20:13)
[2018-08-09] MEDS: DOCUSATE SODIUM 100 MG CAPSULE PO SCH (20:13)
[2018-08-09] MEDS: MONTELUKAST 10 MG TABLET PO SCH (20:13)
[2018-08-09] MEDS ORDERED: ASPIRIN EC 81 MG TABLET PO SCH (21:00)
[2018-08-09] MEDS ORDERED: DOCUSATE SODIUM 100 MG CAPSULE PO SCH (21:00)
[2018-08-09] MEDS: MEROPENEM 1,000 MG in SODIUM CHLORIDE 0.9% 100 ML IV SCH (21:56)
[2018-08-10] MEDS: ALBUTEROL/IPRATROPIUM 3 ML NEB RESP TX SCH ×4 (01:05→19:13)
[2018-08-10 06:24] LABS: Osmolality,Calculated 273.1 MOS/KG (273-304)
[2018-08-10] MEDS: SODIUM CHLORIDE 0.9% 1,000 ML IV SCH (06:32)
[2018-08-10] MEDS ORDERED: PANTOPRAZOLE 40 MG TABLET PO SCH (09:00)
[2018-08-10] MEDS ORDERED: FUROSEMIDE 40 MG TABLET PO SCH ×2 (09:00)
[2018-08-10] MEDS ORDERED: CHOLECALCIFEROL 1,000 UNIT TABLET PO SCH (09:00)
[2018-08-10] MEDS ORDERED: FLUoxetine 20 MG CAPSULE PO SCH (09:00)
[2018-08-10] MEDS ORDERED: SELENIUM 200 MCG PO SCH (09:00)
[2018-08-10] MEDS: FUROSEMIDE 40 MG TABLET PO SCH (09:51)
[2018-08-10] MEDS: CHOLECALCIFEROL 1,000 UNIT TABLET PO SCH (09:51)
[2018-08-10] MEDS: POTASSIUM CHLORIDE 20 MEQ TABLET PO SCH (09:51)
[2018-08-10] MEDS: PANTOPRAZOLE 40 MG TABLET PO SCH (09:52)
[2018-08-10] MEDS: LEVOTHYROXINE 125 MCG TABLET PO SCH (09:52)
[2018-08-10] MEDS: MAGNESIUM OXIDE 400 MG TABLET PO SCH (09:52)
[2018-08-10] MEDS: LOSARTAN 50 MG TABLET PO SCH ×2 (09:52→21:47)
[2018-08-10] MEDS: ASPIRIN EC 81 MG TABLET PO SCH ×2 (09:52→21:48)
[2018-08-10] MEDS: LORATADINE 10 MG TABLET PO SCH (09:52)
[2018-08-10] MEDS: FLUoxetine 20 MG CAPSULE PO SCH (09:52)
[2018-08-10] MEDS: MEROPENEM 1,000 MG in SODIUM CHLORIDE 0.9% 100 ML IV SCH ×2 (09:53→21:48)
[2018-08-10] MEDS: DOCUSATE SODIUM 100 MG CAPSULE PO SCH ×2 (09:53→21:47)
[2018-08-10] MEDS: FLUTICASONE 220 MCG/PUFF INHALER 12 GM INH SCH ×2 (09:53→21:46)
[2018-08-10] MEDS: ENOXAPARIN 30 MG/0.3 ML SYRINGE SUBCUT SCH (15:13)
[2018-08-10] MEDS ORDERED: ALUMINUM/MAGNES/SIMETH MAX STR 30 ML UDCUP PO PRN (17:20)
[2018-08-10] MEDS: ACETAMINOPHEN 325 MG TABLET PO PRN (18:40)
[2018-08-10] MEDS: MONTELUKAST 10 MG TABLET PO SCH (21:47)
[2018-08-10] MEDS: SIMVASTATIN 20 MG TABLET PO SCH (21:47)
[2018-08-10] MEDS: traMADol 50 MG TABLET PO PRN (21:50)
[2018-08-11] MEDS: ALBUTEROL/IPRATROPIUM 3 ML NEB RESP TX SCH ×4 (00:27→19:04)
[2018-08-11] MEDS: LEVOTHYROXINE 125 MCG TABLET PO SCH (07:00)
[2018-08-11] MEDS ORDERED: SODIUM CHLORIDE 0.9% 500 ML IV ONE (07:31)
[2018-08-11] MEDS: SODIUM CHLORIDE 0.9% 1,000 ML IV SCH ×4 (09:00→21:36)
[2018-08-11] MEDS: traMADol 50 MG TABLET PO PRN ×2 (09:34→17:39)
[2018-08-11] MEDS: FLUTICASONE 220 MCG/PUFF INHALER 12 GM INH SCH ×2 (09:34→21:30)
[2018-08-11] MEDS: PANTOPRAZOLE 40 MG TABLET PO SCH (09:35)
[2018-08-11] MEDS: LORATADINE 10 MG TABLET PO SCH (09:35)
[2018-08-11] MEDS: FUROSEMIDE 40 MG TABLET PO SCH (09:35)
[2018-08-11] MEDS: MEROPENEM 1,000 MG in SODIUM CHLORIDE 0.9% 100 ML IV SCH ×2 (09:36→21:25)
[2018-08-11] MEDS: CHOLECALCIFEROL 1,000 UNIT TABLET PO SCH (09:36)
[2018-08-11] MEDS: DOCUSATE SODIUM 100 MG CAPSULE PO SCH ×2 (09:36→21:24)
[2018-08-11] MEDS: ASPIRIN EC 81 MG TABLET PO SCH ×2 (09:36→21:24)
[2018-08-11] MEDS: LOSARTAN 50 MG TABLET PO SCH ×2 (09:36→21:24)
[2018-08-11] MEDS: POTASSIUM CHLORIDE 20 MEQ TABLET PO SCH (09:36)
[2018-08-11] MEDS: MAGNESIUM OXIDE 400 MG TABLET PO SCH (09:43)
[2018-08-11] MEDS: FLUoxetine 20 MG CAPSULE PO SCH (11:27)
[2018-08-11] MEDS: DEXTROMETHORPHAN ER 6 MG/ML 90 ML/BOTTLE PO PRN ×2 (12:20→15:14)
[2018-08-11] MEDS: SIMVASTATIN 20 MG TABLET PO SCH (21:24)
[2018-08-11] MEDS: MONTELUKAST 10 MG TABLET PO SCH (21:24)
[2018-08-11] MEDS: ENOXAPARIN 40 MG/0.4 ML SYRINGE SUBCUT SCH (21:25)
[2018-08-12] MEDS: ALBUTEROL/IPRATROPIUM 3 ML NEB RESP TX SCH ×4 (00:19→19:35)
[2018-08-12] MEDS: LEVOTHYROXINE 125 MCG TABLET PO SCH (06:33)
[2018-08-12 09:05] LABS: Basophils % 0.3 % (0.0-0.8); Eosinophils # 0.5 10*3/uL (0.0-0.87); Eosinophils % 5.7 % (0.00-10.9); Hematocrit 31.9 VOL% (35.7-47.0); Hemoglobin 10.1 GM/DL (12.0-16.0); Immature Granulocytes % 1.2 %; Immature Granulocytes Absolute 0.11 #; Lymphocytes # 0.5 10*3/uL (1.4-4.0); Lymphocytes % 5.9 % (21.3-54.2); Mean Corpuscular HGB Conc 31.7 GM/DL (32-36); Mean Corpuscular Volume 87.9 FL (87-102); Mean Platelet Volume 11.3 FL (9.6-12.0); Monocytes % 14.7 % (1.7-12.7); Neutrophils % 72.2 % (38.7-73.9); Platelet Count 127 T/CUMM (130-400); Red Blood Count 3.63 MC/CUMM (3.8-5.5); Red Cell Distribution Width 14.3 % (9.3-17.3); White Blood Count 8.9 T/CUMM (4-12)
[2018-08-12 09:36] LABS: Calcium 7.9 MG/DL (8.5-10.1)
[2018-08-12] MEDS: DEXTROMETHORPHAN ER 6 MG/ML 90 ML/BOTTLE PO PRN ×2 (09:37→13:25)
[2018-08-12] MEDS: CHOLECALCIFEROL 1,000 UNIT TABLET PO SCH (09:39)
[2018-08-12] MEDS: ASPIRIN EC 81 MG TABLET PO SCH ×2 (09:39→21:58)
[2018-08-12] MEDS: FUROSEMIDE 40 MG TABLET PO SCH (09:39)
[2018-08-12] MEDS: PANTOPRAZOLE 40 MG TABLET PO SCH (09:39)
[2018-08-12] MEDS: FLUoxetine 20 MG CAPSULE PO SCH (09:39)
[2018-08-12] MEDS: LORATADINE 10 MG TABLET PO SCH (09:40)
[2018-08-12] MEDS: LOSARTAN 50 MG TABLET PO SCH ×2 (09:40→21:58)
[2018-08-12] MEDS: DOCUSATE SODIUM 100 MG CAPSULE PO SCH ×2 (09:40→21:58)
[2018-08-12] MEDS: traMADol 50 MG TABLET PO PRN ×2 (09:40→21:57)
[2018-08-12] MEDS: MAGNESIUM OXIDE 400 MG TABLET PO SCH (09:40)
[2018-08-12] MEDS: POTASSIUM CHLORIDE 20 MEQ TABLET PO SCH (09:40)
[2018-08-12] MEDS: MEROPENEM 1,000 MG in SODIUM CHLORIDE 0.9% 100 ML IV SCH ×2 (09:40→21:59)
[2018-08-12] MEDS: SODIUM CHLORIDE 0.9% 1,000 ML IV SCH (09:41)
[2018-08-12] MEDS: FLUTICASONE 220 MCG/PUFF INHALER 12 GM INH SCH ×2 (09:41→21:57)
[2018-08-12] MEDS: MONTELUKAST 10 MG TABLET PO SCH (21:57)
[2018-08-12] MEDS: SIMVASTATIN 20 MG TABLET PO SCH (21:57)
[2018-08-12] MEDS: ENOXAPARIN 40 MG/0.4 ML SYRINGE SUBCUT SCH (21:58)
[2018-08-13] MEDS: ALBUTEROL/IPRATROPIUM 3 ML NEB RESP TX SCH ×4 (01:45→19:16)
[2018-08-13] MEDS: SODIUM CHLORIDE 0.9% 1,000 ML IV SCH ×2 (02:06→17:10)
[2018-08-13] MEDS: LEVOTHYROXINE 125 MCG TABLET PO SCH (06:26)
[2018-08-13] MEDS: DOCUSATE SODIUM 100 MG CAPSULE PO SCH ×2 (09:08→23:19)
[2018-08-13] MEDS: CHOLECALCIFEROL 1,000 UNIT TABLET PO SCH (09:08)
[2018-08-13] MEDS: FUROSEMIDE 40 MG TABLET PO SCH (09:09)
[2018-08-13] MEDS: POTASSIUM CHLORIDE 20 MEQ TABLET PO SCH (09:10)
[2018-08-13] MEDS: MAGNESIUM OXIDE 400 MG TABLET PO SCH (09:10)
[2018-08-13] MEDS: PANTOPRAZOLE 40 MG TABLET PO SCH (09:11)
[2018-08-13] MEDS: FLUoxetine 20 MG CAPSULE PO SCH (09:11)
[2018-08-13] MEDS: LOSARTAN 50 MG TABLET PO SCH ×2 (09:11→23:18)
[2018-08-13] MEDS: LORATADINE 10 MG TABLET PO SCH (09:11)
[2018-08-13] MEDS: traMADol 50 MG TABLET PO PRN (09:12)
[2018-08-13] MEDS: methylPREDNISolone SOD SUC 40 MG/1 ML VIAL IV SCH ×2 (09:13→17:06)
[2018-08-13] MEDS: ASPIRIN EC 81 MG TABLET PO SCH ×2 (10:25→23:18)
[2018-08-13] MEDS: FLUTICASONE 220 MCG/PUFF INHALER 12 GM INH SCH ×2 (10:26→23:19)
[2018-08-13] MEDS: MEROPENEM 1,000 MG in SODIUM CHLORIDE 0.9% 100 ML IV SCH ×2 (10:26→23:17)
[2018-08-13] MEDS: DEXTROMETHORPHAN ER 6 MG/ML 90 ML/BOTTLE PO PRN ×2 (10:44→15:17)
[2018-08-13] MEDS: SIMVASTATIN 20 MG TABLET PO SCH (23:18)
[2018-08-13] MEDS: MONTELUKAST 10 MG TABLET PO SCH (23:18)
[2018-08-13] MEDS: ENOXAPARIN 40 MG/0.4 ML SYRINGE SUBCUT SCH (23:19)
[2018-08-14] MEDS: methylPREDNISolone SOD SUC 40 MG/1 ML VIAL IV SCH ×3 (00:51→17:26)
[2018-08-14] MEDS: SODIUM CHLORIDE 0.9% 1,000 ML IV SCH ×2 (00:53→18:16)
[2018-08-14] MEDS: ALBUTEROL/IPRATROPIUM 3 ML NEB RESP TX SCH ×4 (01:23→20:34)
[2018-08-14] MEDS: LEVOTHYROXINE 125 MCG TABLET PO SCH (07:15)
[2018-08-14] MEDS ORDERED: MIDAZOLAM 2 MG/2 ML VIAL ONE (07:25)
[2018-08-14] MEDS ORDERED: LIDOCAINE 2% VISCOUS 100 ML BOTTLE SWISH/SPIT ONE (08:00)
[2018-08-14] MEDS ORDERED: MIDAZOLAM 2 MG/2 ML VIAL IV ONE (08:00)
[2018-08-14] MEDS ORDERED: PROMETHAZINE 25 MG/1 ML VIAL IM ONE (08:00)
[2018-08-14] MEDS ORDERED: MEPERIDINE 50 MG/1 ML VIAL IM ONE (08:00)
[2018-08-14] MEDS ORDERED: LIDOCAINE 1% 20 ML VIAL MISC INJ ONE (08:00)
[2018-08-14] MEDS ORDERED: LIDOCAINE 2% 20 ML VIAL RESP TX ONE (08:00)
[2018-08-14] MEDS: MEROPENEM 1,000 MG in SODIUM CHLORIDE 0.9% 100 ML IV SCH ×2 (10:14→21:08)
[2018-08-14] MEDS: FLUoxetine 20 MG CAPSULE PO SCH (10:15)
[2018-08-14] MEDS: CHOLECALCIFEROL 1,000 UNIT TABLET PO SCH (10:15)
[2018-08-14] MEDS: FUROSEMIDE 40 MG TABLET PO SCH (10:15)
[2018-08-14] MEDS: MAGNESIUM OXIDE 400 MG TABLET PO SCH (10:16)
[2018-08-14] MEDS: ASPIRIN EC 81 MG TABLET PO SCH ×2 (10:16→21:11)
[2018-08-14] MEDS: LORATADINE 10 MG TABLET PO SCH (10:16)
[2018-08-14] MEDS: POTASSIUM CHLORIDE 20 MEQ TABLET PO SCH (10:16)
[2018-08-14] MEDS: PANTOPRAZOLE 40 MG TABLET PO SCH (10:16)
[2018-08-14] MEDS: DOCUSATE SODIUM 100 MG CAPSULE PO SCH ×2 (10:16→21:11)
[2018-08-14] MEDS: LOSARTAN 50 MG TABLET PO SCH ×2 (10:20→21:12)
[2018-08-14] MEDS: FLUTICASONE 220 MCG/PUFF INHALER 12 GM INH SCH ×2 (10:22→21:06)
[2018-08-14] MEDS: traMADol 50 MG TABLET PO PRN ×2 (10:26→21:11)
[2018-08-14] MEDS ORDERED: FUROSEMIDE 20 MG/2 ML VIAL IV ONE (16:39)
[2018-08-14] MEDS: NYSTATIN 500,000 UNIT/5 ML UDCUP SWISH/SWAL SCH ×2 (17:27→21:07)
[2018-08-14] MEDS: ENOXAPARIN 40 MG/0.4 ML SYRINGE SUBCUT SCH (21:04)
[2018-08-14] MEDS: MONTELUKAST 10 MG TABLET PO SCH (21:11)
[2018-08-14] MEDS: SIMVASTATIN 20 MG TABLET PO SCH (21:11)
[2018-08-14] MEDS: DEXTROMETHORPHAN ER 6 MG/ML 90 ML/BOTTLE PO PRN (21:18)
[2018-08-15] MEDS: methylPREDNISolone SOD SUC 40 MG/1 ML VIAL IV SCH ×3 (00:29→16:17)
[2018-08-15] MEDS: ALBUTEROL/IPRATROPIUM 3 ML NEB RESP TX SCH ×4 (01:45→19:15)
[2018-08-15] MEDS: LEVOTHYROXINE 125 MCG TABLET PO SCH (06:09)
[2018-08-15] MEDS: POTASSIUM CHLORIDE 20 MEQ TABLET PO SCH (09:03)
[2018-08-15] MEDS: FLUoxetine 20 MG CAPSULE PO SCH (09:03)
[2018-08-15] MEDS: NYSTATIN 500,000 UNIT/5 ML UDCUP SWISH/SWAL SCH ×4 (09:03→20:26)
[2018-08-15] MEDS: FUROSEMIDE 40 MG TABLET PO SCH (09:03)
[2018-08-15] MEDS: MAGNESIUM OXIDE 400 MG TABLET PO SCH (09:04)
[2018-08-15] MEDS: MEROPENEM 1,000 MG in SODIUM CHLORIDE 0.9% 100 ML IV SCH ×2 (09:04→20:27)
[2018-08-15] MEDS: LORATADINE 10 MG TABLET PO SCH (09:04)
[2018-08-15] MEDS: PANTOPRAZOLE 40 MG TABLET PO SCH (09:04)
[2018-08-15] MEDS: DOCUSATE SODIUM 100 MG CAPSULE PO SCH ×2 (09:04→20:27)
[2018-08-15] MEDS: ASPIRIN EC 81 MG TABLET PO SCH ×2 (09:04→20:27)
[2018-08-15] MEDS: LOSARTAN 50 MG TABLET PO SCH ×2 (09:04→20:27)
[2018-08-15] MEDS: CHOLECALCIFEROL 1,000 UNIT TABLET PO SCH (09:10)
[2018-08-15] MEDS: traMADol 50 MG TABLET PO PRN ×2 (09:10→20:32)
[2018-08-15] MEDS: FLUTICASONE 220 MCG/PUFF INHALER 12 GM INH SCH ×2 (09:11→20:25)
[2018-08-15] MEDS ORDERED: FLUCONAZOLE 200 MG TABLET PO ONE (13:32)
[2018-08-15] MEDS: FLUCONAZOLE 100 MG TABLET PO SCH (16:17)
[2018-08-15] MEDS: ENOXAPARIN 40 MG/0.4 ML SYRINGE SUBCUT SCH (20:26)
[2018-08-15] MEDS: guaiFENesin/CODEINE 5 ML LIQUID PO PRN (20:26)
[2018-08-15] MEDS: MONTELUKAST 10 MG TABLET PO SCH (20:27)
[2018-08-15] MEDS: SIMVASTATIN 20 MG TABLET PO SCH (20:27)
[2018-08-16] MEDS: methylPREDNISolone SOD SUC 40 MG/1 ML VIAL IV SCH ×3 (01:02→17:14)
[2018-08-16] MEDS: ALBUTEROL/IPRATROPIUM 3 ML NEB RESP TX SCH ×4 (02:15→19:40)
[2018-08-16] MEDS: guaiFENesin/CODEINE 5 ML LIQUID PO PRN ×2 (04:19→20:21)
[2018-08-16] MEDS: LEVOTHYROXINE 125 MCG TABLET PO SCH (06:41)
[2018-08-16] MEDS: FUROSEMIDE 40 MG TABLET PO SCH (08:23)
[2018-08-16] MEDS: MAGNESIUM OXIDE 400 MG TABLET PO SCH (08:23)
[2018-08-16] MEDS: PANTOPRAZOLE 40 MG TABLET PO SCH (08:23)
[2018-08-16] MEDS: FLUTICASONE 220 MCG/PUFF INHALER 12 GM INH SCH ×2 (08:23→20:21)
[2018-08-16] MEDS: DOCUSATE SODIUM 100 MG CAPSULE PO SCH ×2 (08:23→20:20)
[2018-08-16] MEDS: LOSARTAN 50 MG TABLET PO SCH ×2 (08:24→20:20)
[2018-08-16] MEDS: POTASSIUM CHLORIDE 20 MEQ TABLET PO SCH (08:24)
[2018-08-16] MEDS: CHOLECALCIFEROL 1,000 UNIT TABLET PO SCH (08:24)
[2018-08-16] MEDS: FLUCONAZOLE 100 MG TABLET PO SCH (08:24)
[2018-08-16] MEDS: NYSTATIN 500,000 UNIT/5 ML UDCUP SWISH/SWAL SCH ×4 (08:25→20:20)
[2018-08-16] MEDS: MEROPENEM 1,000 MG in SODIUM CHLORIDE 0.9% 100 ML IV SCH ×2 (08:25→20:19)
[2018-08-16] MEDS: ASPIRIN EC 81 MG TABLET PO SCH ×2 (08:25→20:20)
[2018-08-16] MEDS: LORATADINE 10 MG TABLET PO SCH (08:25)
[2018-08-16] MEDS: FLUoxetine 20 MG CAPSULE PO SCH (08:32)
[2018-08-16] MEDS: traMADol 50 MG TABLET PO PRN ×2 (08:32→19:28)
[2018-08-16 12:00] LABS: Basophils % 0.1 % (0.0-0.8); Eosinophils % 0.1 % (0.00-10.9); Hematocrit 32.1 VOL% (35.7-47.0); Hemoglobin 10.3 GM/DL (12.0-16.0); Immature Granulocytes % 7.8 %; Immature Granulocytes Absolute 1.09 #; Lymphocytes # 0.6 10*3/uL (1.4-4.0); Lymphocytes % 4.6 % (21.3-54.2); Mean Corpuscular HGB Conc 32.1 GM/DL (32-36); Mean Corpuscular Volume 87.9 FL (87-102); Monocytes % 4.7 % (1.7-12.7); Neutrophils % 82.7 % (38.7-73.9); Platelet Count 302 T/CUMM (130-400); Red Blood Count 3.65 MC/CUMM (3.8-5.5); Red Cell Distribution Width 14.3 % (9.3-17.3); White Blood Count 13.9 T/CUMM (4-12)
[2018-08-16 12:07] LABS: Calcium 8.6 MG/DL (8.5-10.1); Osmolality,Calculated 281.4 MOS/KG (273-304)
[2018-08-16 12:51] LABS: Lymphocytes 7 % (20-55); Segmented Neutrophils 93 % (50-85); Total Cells Counted 100
[2018-08-16 12:52] LABS: Hypochromasia 1+; Microcytosis 1+; Polychromasia Slight
[2018-08-16 12:59] LABS: Elliptocytes Few; Ovalocytes Few; Tear Drop Cells Slight
[2018-08-16 13:00] LABS: Platelet Estimate Normal
[2018-08-16] MEDS: ENOXAPARIN 40 MG/0.4 ML SYRINGE SUBCUT SCH (20:20)
[2018-08-16] MEDS: MONTELUKAST 10 MG TABLET PO SCH (20:20)
[2018-08-16] MEDS: SIMVASTATIN 20 MG TABLET PO SCH (20:20)
[2018-08-16] MEDS: DEXTROMETHORPHAN ER 6 MG/ML 90 ML/BOTTLE PO PRN (23:04)
[2018-08-17] MEDS: methylPREDNISolone SOD SUC 40 MG/1 ML VIAL IV SCH ×2 (01:09→10:12)
[2018-08-17] MEDS: ALBUTEROL/IPRATROPIUM 3 ML NEB RESP TX SCH ×4 (02:05→19:33)
[2018-08-17 02:26] LABS: Basophils # 0.1 10*3/uL (0.0-0.2); Basophils % 0.3 % (0.0-0.8); Eosinophils % 0.1 % (0.00-10.9); Hematocrit 33.3 VOL% (35.7-47.0); Hemoglobin 10.5 GM/DL (12.0-16.0); Immature Granulocytes % 7.6 %; Immature Granulocytes Absolute 1.31 #; Lymphocytes # 1.1 10*3/uL (1.4-4.0); Lymphocytes % 6.6 % (21.3-54.2); Mean Corpuscular HGB Conc 31.5 GM/DL (32-36); Mean Corpuscular Volume 88.3 FL (87-102); Mean Platelet Volume 10.7 FL (9.6-12.0); Monocytes % 6.3 % (1.7-12.7); NRBC # 0.02 10*3/uL; Neutrophils % 79.1 % (38.7-73.9); Platelet Count 321 T/CUMM (130-400); Red Blood Count 3.77 MC/CUMM (3.8-5.5); Red Cell Distribution Width 14.5 % (9.3-17.3); White Blood Count 17.2 T/CUMM (4-12)
[2018-08-17] MEDS: guaiFENesin/CODEINE 5 ML LIQUID PO PRN ×2 (02:30→17:40)
[2018-08-17 02:49] LABS: Calcium 9.2 MG/DL (8.5-10.1); Osmolality,Calculated 277.8 MOS/KG (273-304)
[2018-08-17 03:44] LABS: Anisocytosis 1+; Lymphocytes 7 % (20-55); Myelocytes 1 %; Segmented Neutrophils 90 % (50-85); Total Cells Counted 100
[2018-08-17 03:45] LABS: Platelet Estimate Adequate
[2018-08-17] MEDS: LEVOTHYROXINE 125 MCG TABLET PO SCH (06:12)
[2018-08-17] MEDS: FLUTICASONE 220 MCG/PUFF INHALER 12 GM INH SCH ×2 (09:34→20:27)
[2018-08-17] MEDS: CHOLECALCIFEROL 1,000 UNIT TABLET PO SCH (09:35)
[2018-08-17] MEDS: PANTOPRAZOLE 40 MG TABLET PO SCH (09:35)
[2018-08-17] MEDS: DOCUSATE SODIUM 100 MG CAPSULE PO SCH ×2 (09:35→20:26)
[2018-08-17] MEDS: FUROSEMIDE 40 MG TABLET PO SCH (09:35)
[2018-08-17] MEDS: NYSTATIN 500,000 UNIT/5 ML UDCUP SWISH/SWAL SCH ×4 (09:36→20:27)
[2018-08-17] MEDS: BENZONATATE 100 MG CAPSULE PO PRN ×3 (09:36→21:53)
[2018-08-17] MEDS: LORATADINE 10 MG TABLET PO SCH (09:36)
[2018-08-17] MEDS: MAGNESIUM OXIDE 400 MG TABLET PO SCH (09:36)
[2018-08-17] MEDS: POTASSIUM CHLORIDE 20 MEQ TABLET PO SCH (09:36)
[2018-08-17] MEDS: FLUCONAZOLE 100 MG TABLET PO SCH (09:37)
[2018-08-17] MEDS: ASPIRIN EC 81 MG TABLET PO SCH ×2 (09:37→20:26)
[2018-08-17] MEDS: LOSARTAN 50 MG TABLET PO SCH ×2 (09:37→20:26)
[2018-08-17] MEDS: FLUoxetine 20 MG CAPSULE PO SCH (09:37)
[2018-08-17] MEDS: MEROPENEM 1,000 MG in SODIUM CHLORIDE 0.9% 100 ML IV SCH ×2 (09:37→20:27)
[2018-08-17] MEDS ORDERED: FUROSEMIDE 40 MG/4 ML VIAL IV ONE (13:30)
[2018-08-17] MEDS: DEXTROMETHORPHAN ER 6 MG/ML 90 ML/BOTTLE PO PRN (17:36)
[2018-08-17] MEDS: SIMVASTATIN 20 MG TABLET PO SCH (20:26)
[2018-08-17] MEDS: MONTELUKAST 10 MG TABLET PO SCH (20:26)
[2018-08-17] MEDS: ENOXAPARIN 40 MG/0.4 ML SYRINGE SUBCUT SCH (20:27)
[2018-08-17] MEDS: traMADol 50 MG TABLET PO PRN (21:51)
[2018-08-18] MEDS: ALBUTEROL/IPRATROPIUM 3 ML NEB RESP TX SCH ×4 (01:11→19:44)
[2018-08-18] MEDS: LEVOTHYROXINE 125 MCG TABLET PO SCH (06:00)
[2018-08-18 07:25] LABS: Basophils # 0.1 10*3/uL (0.0-0.2); Basophils % 0.4 % (0.0-0.8); Eosinophils # 0.3 10*3/uL (0.0-0.87); Eosinophils % 2.3 % (0.00-10.9); Hematocrit 35.1 VOL% (35.7-47.0); Hemoglobin 11.1 GM/DL (12.0-16.0); Immature Granulocytes % 4.3 %; Immature Granulocytes Absolute 0.54 #; Lymphocytes # 1.1 10*3/uL (1.4-4.0); Lymphocytes % 8.8 % (21.3-54.2); Mean Corpuscular HGB Conc 31.6 GM/DL (32-36); Mean Platelet Volume 10.2 FL (9.6-12.0); Monocytes % 7.7 % (1.7-12.7); NRBC # 0.03 10*3/uL; Neutrophils % 76.5 % (38.7-73.9); Platelet Count 305 T/CUMM (130-400); Red Blood Count 3.99 MC/CUMM (3.8-5.5); Red Cell Distribution Width 14.5 % (9.3-17.3); White Blood Count 12.7 T/CUMM (4-12)
[2018-08-18 08:04] LABS: Eosinophils 1 % (0-10); Hypochromasia 1+; Lymphocytes 8 % (20-55); Nucleated Red Blood Cells 1 (0-5); Platelet Estimate Adequate; Segmented Neutrophils 85 % (50-85); Total Cells Counted 100
[2018-08-18 08:05] LABS: Microcytosis Slight
[2018-08-18] MEDS: NYSTATIN 500,000 UNIT/5 ML UDCUP SWISH/SWAL SCH ×4 (09:07→21:01)
[2018-08-18] MEDS: FLUoxetine 20 MG CAPSULE PO SCH (09:08)
[2018-08-18] MEDS: MAGNESIUM OXIDE 400 MG TABLET PO SCH (09:08)
[2018-08-18] MEDS: PANTOPRAZOLE 40 MG TABLET PO SCH (09:08)
[2018-08-18] MEDS: LOSARTAN 50 MG TABLET PO SCH ×2 (09:08→21:01)
[2018-08-18] MEDS: FUROSEMIDE 40 MG TABLET PO SCH (09:08)
[2018-08-18] MEDS: FLUCONAZOLE 100 MG TABLET PO SCH (09:08)
[2018-08-18] MEDS: CHOLECALCIFEROL 1,000 UNIT TABLET PO SCH (09:08)
[2018-08-18] MEDS: DOCUSATE SODIUM 100 MG CAPSULE PO SCH ×2 (09:08→21:01)
[2018-08-18] MEDS: LORATADINE 10 MG TABLET PO SCH (09:08)
[2018-08-18] MEDS: POTASSIUM CHLORIDE 20 MEQ TABLET PO SCH (09:08)
[2018-08-18] MEDS: ASPIRIN EC 81 MG TABLET PO SCH ×2 (09:09→21:01)
[2018-08-18] MEDS: MEROPENEM 1,000 MG in SODIUM CHLORIDE 0.9% 100 ML IV SCH ×2 (09:09→21:03)
[2018-08-18] MEDS: traMADol 50 MG TABLET PO PRN ×2 (09:14→21:02)
[2018-08-18] MEDS: FLUTICASONE 220 MCG/PUFF INHALER 12 GM INH SCH ×2 (09:14→21:01)
[2018-08-18] MEDS: BENZONATATE 100 MG CAPSULE PO PRN ×2 (13:38→21:13)
[2018-08-18] MEDS: ENOXAPARIN 40 MG/0.4 ML SYRINGE SUBCUT SCH (21:00)
[2018-08-18] MEDS: MONTELUKAST 10 MG TABLET PO SCH (21:01)
[2018-08-18] MEDS: SIMVASTATIN 20 MG TABLET PO SCH (21:01)
[2018-08-19] MEDS: ALBUTEROL/IPRATROPIUM 3 ML NEB RESP TX SCH ×2 (00:46→07:27)
[2018-08-19] MEDS: guaiFENesin/CODEINE 5 ML LIQUID PO PRN (03:56)
[2018-08-19] MEDS: LEVOTHYROXINE 125 MCG TABLET PO SCH (06:19)
[2018-08-19 07:45] VITALS: BP 163/56
[2018-08-19] MEDS: FLUTICASONE 220 MCG/PUFF INHALER 12 GM INH SCH (08:56)
[2018-08-19] MEDS: traMADol 50 MG TABLET PO PRN (08:57)
[2018-08-19] MEDS: ASPIRIN EC 81 MG TABLET PO SCH (08:57)
[2018-08-19] MEDS: NYSTATIN 500,000 UNIT/5 ML UDCUP SWISH/SWAL SCH (08:57)
[2018-08-19] MEDS: FUROSEMIDE 40 MG TABLET PO SCH (08:58)
[2018-08-19] MEDS: LOSARTAN 50 MG TABLET PO SCH (08:58)
[2018-08-19] MEDS: DOCUSATE SODIUM 100 MG CAPSULE PO SCH (08:58)
[2018-08-19] MEDS: BENZONATATE 100 MG CAPSULE PO PRN (08:58)
[2018-08-19] MEDS: POTASSIUM CHLORIDE 20 MEQ TABLET PO SCH (08:58)
[2018-08-19] MEDS: FLUoxetine 20 MG CAPSULE PO SCH (08:58)
[2018-08-19] MEDS: PANTOPRAZOLE 40 MG TABLET PO SCH (08:58)
[2018-08-19] MEDS: CHOLECALCIFEROL 1,000 UNIT TABLET PO SCH (08:58)
[2018-08-19] MEDS: MEROPENEM 1,000 MG in SODIUM CHLORIDE 0.9% 100 ML IV SCH (08:59)
[2018-08-19] MEDS: LORATADINE 10 MG TABLET PO SCH (08:59)
[2018-08-19] MEDS: MAGNESIUM OXIDE 400 MG TABLET PO SCH (08:59)
[2018-08-19] MEDS: FLUCONAZOLE 100 MG TABLET PO SCH (08:59)
== END 2018-08-19 11:53 | disposition home or self-care (01) | DRG 202 ==
LOC: EDBD → EDUNIT# → N.ED 09:36 → N.EDINP 11:20 → N.2E 12:17
PROVIDERS: ADMIT Family Medicine; ATTEND Family Medicine

== ENCOUNTER 2019-12-13 16:00 | Inpatient (IN) ==
[2019-12-13] MEDS ORDERED: SODIUM CHLORIDE 0.9% 500 ML IV STA (16:26)
[2019-12-13] MEDS ORDERED: ACETAMINOPHEN 500 MG TABLET PO STA (16:27)
[2019-12-13 16:45] LABS: Basophils % 0.5 % (0.0-0.8); Eosinophils # 0.1 10*3/uL (0.0-0.87); Hematocrit 33.3 VOL% (35.7-47.0); Hemoglobin 10.6 GM/DL (12.0-16.0); Immature Granulocytes % 0.5 %; Immature Granulocytes Absolute 0.04 #; Lymphocytes # 0.7 10*3/uL (1.4-4.0); Lymphocytes % 8.5 % (21.3-54.2); Mean Corpuscular HGB Conc 31.8 GM/DL (32-36); Mean Corpuscular Volume 89.3 FL (87-102); Mean Platelet Volume 10.2 FL (9.6-12.0); Monocytes % 11.8 % (1.7-12.7); Neutrophils % 77.7 % (38.7-73.9); Platelet Count 160 T/CUMM (130-400); Red Blood Count 3.73 MC/CUMM (3.8-5.5); White Blood Count 7.9 T/CUMM (4-12)
[2019-12-13 16:58] LABS: Apearance,Urine CLOUDY (Clear); Bacteria,Urine Many /HPF (Few); Bilirubin,Urine Negative (Negative); Blood, Urine Small mg/dL (Negative); Glucose,Urine (UA) Negative (Negative); Ketones,Urine Negative (Negative); Nitrite,Urine Positive (Negative); Protein,Urine 100 MG/DL; RBC,Urine 12 /HPF (0-4); Squamous Epithelial Cell,Urine Few /HPF (0-10); Urine Color Red (Yellow); Urine Specific Gravity 1.012 (1.001-1.035); WBC,Urine 2455 /HPF (0-6)
[2019-12-13] MEDS ORDERED: cefTRIAXone 1,000 MG in SODIUM CHLORIDE 0.9% 100 ML IV STA (17:02)
[2019-12-13 17:04] LABS: Bilirubin,Total 0.6 MG/DL (0.2-1.0); Calcium 8.1 MG/DL (8.5-10.1); Osmolality,Calculated 280.7 MOS/KG (273-304); Total Protein 6.7 G/DL (6.4-8.3)
[2019-12-13] MEDS ORDERED: ONDANSETRON 4 MG/2 ML VIAL IV PRN (17:34)
[2019-12-13] MEDS ORDERED: ACETAMINOPHEN 325 MG TABLET PO PRN (17:34)
[2019-12-13] MEDS ORDERED: ALBUTEROL 2.5 MG/3 ML NEB RESP TX PRN (17:36)
[2019-12-13] MEDS: LACTATED RINGERS 1,000 ML IV SCH (21:14)
[2019-12-13] MEDS: SIMVASTATIN 20 MG TABLET PO SCH (21:17)
[2019-12-13] MEDS: MONTELUKAST 10 MG TABLET PO SCH (21:17)
[2019-12-13] MEDS: MULTIVITAMIN (OCUVITE) TABLET PO SCH (21:18)
[2019-12-13] MEDS: DOCUSATE SODIUM 100 MG CAPSULE PO SCH (21:18)
[2019-12-13] MEDS: GABAPENTIN 400 MG CAPSULE PO SCH (21:18)
[2019-12-13] MEDS: ASPIRIN EC 81 MG TABLET PO SCH (21:18)
[2019-12-13] MEDS: LOSARTAN 50 MG TABLET PO SCH (21:18)
[2019-12-13] MEDS: ARFORMOTEROL 15 MCG/2 ML NEB RESP TX SCH (23:38)
[2019-12-13] MEDS: BUDESONIDE 0.5 MG/2 ML NEB RESP TX SCH (23:38)
[2019-12-14 05:48] LABS: Basophils % 0.4 % (0.0-0.8); Eosinophils # 0.1 10*3/uL (0.0-0.87); Eosinophils % 1.6 % (0.00-10.9); Hematocrit 30.2 VOL% (35.7-47.0); Hemoglobin 9.8 GM/DL (12.0-16.0); Immature Granulocytes % 0.5 %; Immature Granulocytes Absolute 0.04 #; Lymphocytes # 0.7 10*3/uL (1.4-4.0); Mean Corpuscular HGB Conc 32.5 GM/DL (32-36); Mean Corpuscular Volume 88.3 FL (87-102); Mean Platelet Volume 10.8 FL (9.6-12.0); Monocytes % 10.5 % (1.7-12.7); Platelet Count 156 T/CUMM (130-400); Red Blood Count 3.42 MC/CUMM (3.8-5.5); Red Cell Distribution Width 14.9 % (9.3-17.3); White Blood Count 7.7 T/CUMM (4-12)
[2019-12-14] MEDS: LEVOTHYROXINE 125 MCG TABLET PO SCH (06:02)
[2019-12-14 06:43] LABS: Albumin 2.4 G/DL (3.4-5.0); Bilirubin,Total 0.6 MG/DL (0.2-1.0); Osmolality,Calculated 276.8 MOS/KG (273-304); Total Protein 5.8 G/DL (6.4-8.3)
[2019-12-14] MEDS: ARFORMOTEROL 15 MCG/2 ML NEB RESP TX SCH ×2 (08:37→19:45)
[2019-12-14] MEDS: BUDESONIDE 0.5 MG/2 ML NEB RESP TX SCH ×2 (08:40→19:45)
[2019-12-14] MEDS: LACTATED RINGERS 1,000 ML IV SCH ×2 (08:44→17:14)
[2019-12-14] MEDS: FUROSEMIDE 40 MG TABLET PO SCH (08:47)
[2019-12-14] MEDS: ASPIRIN EC 81 MG TABLET PO SCH ×2 (08:48→21:16)
[2019-12-14] MEDS: LOSARTAN 50 MG TABLET PO SCH ×2 (08:48→21:17)
[2019-12-14] MEDS: PANTOPRAZOLE 40 MG TABLET PO SCH (08:48)
[2019-12-14] MEDS: FLUoxetine 20 MG CAPSULE PO SCH (08:49)
[2019-12-14] MEDS: DOCUSATE SODIUM 100 MG CAPSULE PO SCH ×2 (08:49→21:16)
[2019-12-14] MEDS: MULTIVITAMIN (OCUVITE) TABLET PO SCH ×2 (08:49→21:16)
[2019-12-14] MEDS: GABAPENTIN 400 MG CAPSULE PO SCH ×3 (09:02→21:16)
[2019-12-14] MEDS: MULTIVITAMIN (CENTRUM) TABLET PO SCH (09:03)
[2019-12-14] MEDS: cefTRIAXone 1,000 MG in SYRINGE 1 EACH IV SCH (09:31)
[2019-12-14] MEDS: SIMVASTATIN 20 MG TABLET PO SCH (21:17)
[2019-12-14] MEDS: MONTELUKAST 10 MG TABLET PO SCH (21:17)
[2019-12-15] MEDS: LACTATED RINGERS 1,000 ML IV SCH (04:01)
[2019-12-15] MEDS: ARFORMOTEROL 15 MCG/2 ML NEB RESP TX SCH ×2 (06:42→19:28)
[2019-12-15] MEDS: BUDESONIDE 0.5 MG/2 ML NEB RESP TX SCH ×2 (06:42→19:28)
[2019-12-15] MEDS: LEVOTHYROXINE 125 MCG TABLET PO SCH (07:11)
[2019-12-15] MEDS: FUROSEMIDE 40 MG TABLET PO SCH (08:48)
[2019-12-15] MEDS: MULTIVITAMIN (CENTRUM) TABLET PO SCH (08:49)
[2019-12-15] MEDS: ASPIRIN EC 81 MG TABLET PO SCH ×2 (08:49→21:04)
[2019-12-15] MEDS: DOCUSATE SODIUM 100 MG CAPSULE PO SCH ×2 (08:49→21:04)
[2019-12-15] MEDS: MULTIVITAMIN (OCUVITE) TABLET PO SCH ×2 (08:49→21:05)
[2019-12-15] MEDS: LOSARTAN 50 MG TABLET PO SCH ×2 (08:49→21:04)
[2019-12-15] MEDS: FLUoxetine 20 MG CAPSULE PO SCH (08:49)
[2019-12-15] MEDS: cefTRIAXone 1,000 MG in SYRINGE 1 EACH IV SCH (09:00)
[2019-12-15] MEDS: PANTOPRAZOLE 40 MG TABLET PO SCH (09:15)
[2019-12-15] MEDS: GABAPENTIN 400 MG CAPSULE PO SCH ×3 (09:15→21:05)
[2019-12-15] MEDS ORDERED: BISACODYL 10 MG SUPP RECTAL PRN (09:52)
[2019-12-15] MEDS ORDERED: MEROPENEM 1,000 MG in SODIUM CHLORIDE 0.9% 100 ML IV ONE ×3 (12:26→14:00)
[2019-12-15] MEDS: MONTELUKAST 10 MG TABLET PO SCH (21:05)
[2019-12-15] MEDS: SIMVASTATIN 20 MG TABLET PO SCH (21:06)
[2019-12-15] MEDS: MEROPENEM 500 MG in SODIUM CHLORIDE 0.9% 100 ML IV SCH (21:09)
[2019-12-16] MEDS: MEROPENEM 500 MG in SODIUM CHLORIDE 0.9% 100 ML IV SCH ×4 (02:27→21:12)
[2019-12-16] MEDS: LEVOTHYROXINE 125 MCG TABLET PO SCH (06:22)
[2019-12-16] MEDS: FUROSEMIDE 40 MG TABLET PO SCH ×2 (06:23→09:39)
[2019-12-16] MEDS: ARFORMOTEROL 15 MCG/2 ML NEB RESP TX SCH ×2 (07:42→20:02)
[2019-12-16] MEDS: BUDESONIDE 0.5 MG/2 ML NEB RESP TX SCH ×2 (07:50→20:02)
[2019-12-16] MEDS: DOCUSATE SODIUM 100 MG CAPSULE PO SCH ×2 (09:48→21:07)
[2019-12-16] MEDS: GABAPENTIN 400 MG CAPSULE PO SCH ×3 (09:48→21:07)
[2019-12-16] MEDS: MULTIVITAMIN (CENTRUM) TABLET PO SCH (09:48)
[2019-12-16] MEDS: FLUoxetine 20 MG CAPSULE PO SCH (09:48)
[2019-12-16] MEDS: MULTIVITAMIN (OCUVITE) TABLET PO SCH ×2 (09:48→21:07)
[2019-12-16] MEDS: LOSARTAN 50 MG TABLET PO SCH ×2 (09:49→21:06)
[2019-12-16] MEDS: ASPIRIN EC 81 MG TABLET PO SCH ×2 (09:49→21:07)
[2019-12-16] MEDS: PANTOPRAZOLE 40 MG TABLET PO SCH (09:50)
[2019-12-16 10:46] LABS: Basophils % 0.3 % (0.0-0.8); Eosinophils # 0.1 10*3/uL (0.0-0.87); Eosinophils % 0.6 % (0.00-10.9); Hematocrit 26.4 VOL% (35.7-47.0); Hemoglobin 8.6 GM/DL (12.0-16.0); Immature Granulocytes % 0.8 %; Immature Granulocytes Absolute 0.07 #; Lymphocytes # 0.6 10*3/uL (1.4-4.0); Lymphocytes % 6.3 % (21.3-54.2); Mean Corpuscular HGB Conc 32.6 GM/DL (32-36); Mean Corpuscular Volume 87.1 FL (87-102); Mean Platelet Volume 10.5 FL (9.6-12.0); Monocytes % 10.7 % (1.7-12.7); Neutrophils % 81.3 % (38.7-73.9); Platelet Count 156 T/CUMM (130-400); Red Blood Count 3.03 MC/CUMM (3.8-5.5); Red Cell Distribution Width 14.8 % (9.3-17.3); White Blood Count 9.1 T/CUMM (4-12)
[2019-12-16 11:13] LABS: Calcium 8.1 MG/DL (8.5-10.1); Osmolality,Calculated 281.5 MOS/KG (273-304)
[2019-12-16] MEDS: POTASSIUM CHLORIDE 20 MEQ TABLET PO PRN ×4 (11:34→17:32)
[2019-12-16] MEDS: MONTELUKAST 10 MG TABLET PO SCH (21:06)
[2019-12-16] MEDS: SIMVASTATIN 20 MG TABLET PO SCH (21:07)
[2019-12-17] MEDS: MEROPENEM 500 MG in SODIUM CHLORIDE 0.9% 100 ML IV SCH ×4 (02:27→21:05)
[2019-12-17 05:23] LABS: Basophils % 0.5 % (0.0-0.8); Eosinophils # 0.3 10*3/uL (0.0-0.87); Eosinophils % 4.7 % (0.00-10.9); Hematocrit 26.7 VOL% (35.7-47.0); Hemoglobin 8.7 GM/DL (12.0-16.0); Immature Granulocytes % 1.9 %; Immature Granulocytes Absolute 0.11 #; Lymphocytes # 0.7 10*3/uL (1.4-4.0); Lymphocytes % 12.4 % (21.3-54.2); Mean Corpuscular HGB Conc 32.6 GM/DL (32-36); Mean Corpuscular Volume 87.5 FL (87-102); Mean Platelet Volume 10.6 FL (9.6-12.0); Monocytes % 12.6 % (1.7-12.7); Neutrophils % 67.9 % (38.7-73.9); Platelet Count 155 T/CUMM (130-400); Red Blood Count 3.05 MC/CUMM (3.8-5.5); Red Cell Distribution Width 14.7 % (9.3-17.3); White Blood Count 5.7 T/CUMM (4-12)
[2019-12-17 05:42] LABS: Calcium 8.3 MG/DL (8.5-10.1); Osmolality,Calculated 282.3 MOS/KG (273-304)
[2019-12-17] MEDS: LEVOTHYROXINE 125 MCG TABLET PO SCH (06:06)
[2019-12-17] MEDS: BUDESONIDE 0.5 MG/2 ML NEB RESP TX SCH ×2 (07:01→20:25)
[2019-12-17] MEDS: ARFORMOTEROL 15 MCG/2 ML NEB RESP TX SCH ×2 (07:11→20:25)
[2019-12-17] MEDS: ASPIRIN EC 81 MG TABLET PO SCH ×2 (09:10→20:47)
[2019-12-17] MEDS: MULTIVITAMIN (CENTRUM) TABLET PO SCH (09:10)
[2019-12-17] MEDS: DOCUSATE SODIUM 100 MG CAPSULE PO SCH ×2 (09:10→20:47)
[2019-12-17] MEDS: FUROSEMIDE 40 MG TABLET PO SCH (09:11)
[2019-12-17] MEDS: MULTIVITAMIN (OCUVITE) TABLET PO SCH ×2 (09:11→20:47)
[2019-12-17] MEDS: LOSARTAN 50 MG TABLET PO SCH ×2 (09:11→20:47)
[2019-12-17] MEDS: FLUoxetine 20 MG CAPSULE PO SCH (09:11)
[2019-12-17] MEDS: PANTOPRAZOLE 40 MG TABLET PO SCH (09:11)
[2019-12-17] MEDS: GABAPENTIN 400 MG CAPSULE PO SCH ×3 (09:11→20:47)
[2019-12-17] MEDS: SIMVASTATIN 20 MG TABLET PO SCH (20:47)
[2019-12-17] MEDS: MONTELUKAST 10 MG TABLET PO SCH (20:47)
[2019-12-18] MEDS: MEROPENEM 500 MG in SODIUM CHLORIDE 0.9% 100 ML IV SCH ×4 (02:27→21:02)
[2019-12-18] MEDS ORDERED: FLUCONAZOLE 150 MG TABLET PO ONE ×2 (06:00→14:28)
[2019-12-18] MEDS: LEVOTHYROXINE 125 MCG TABLET PO SCH (06:36)
[2019-12-18] MEDS: ARFORMOTEROL 15 MCG/2 ML NEB RESP TX SCH ×2 (07:41→19:25)
[2019-12-18] MEDS: BUDESONIDE 0.5 MG/2 ML NEB RESP TX SCH ×2 (07:41→19:25)
[2019-12-18] MEDS: MULTIVITAMIN (OCUVITE) TABLET PO SCH ×2 (10:33→21:02)
[2019-12-18] MEDS: DOCUSATE SODIUM 100 MG CAPSULE PO SCH ×2 (10:34→21:02)
[2019-12-18] MEDS: FUROSEMIDE 40 MG TABLET PO SCH (10:34)
[2019-12-18] MEDS: PANTOPRAZOLE 40 MG TABLET PO SCH (10:34)
[2019-12-18] MEDS: GABAPENTIN 400 MG CAPSULE PO SCH ×3 (10:34→21:02)
[2019-12-18] MEDS: LOSARTAN 50 MG TABLET PO SCH ×2 (10:35→21:02)
[2019-12-18] MEDS: FLUoxetine 20 MG CAPSULE PO SCH (10:35)
[2019-12-18] MEDS: ASPIRIN EC 81 MG TABLET PO SCH ×2 (10:35→21:02)
[2019-12-18] MEDS: MULTIVITAMIN (CENTRUM) TABLET PO SCH (10:35)
[2019-12-18] MEDS: SIMVASTATIN 20 MG TABLET PO SCH (21:02)
[2019-12-18] MEDS: MONTELUKAST 10 MG TABLET PO SCH (21:02)
[2019-12-19] MEDS: MEROPENEM 500 MG in SODIUM CHLORIDE 0.9% 100 ML IV SCH ×4 (01:36→20:31)
[2019-12-19] MEDS: LEVOTHYROXINE 125 MCG TABLET PO SCH (05:34)
[2019-12-19] MEDS: ARFORMOTEROL 15 MCG/2 ML NEB RESP TX SCH ×2 (07:48→19:40)
[2019-12-19] MEDS: BUDESONIDE 0.5 MG/2 ML NEB RESP TX SCH ×2 (07:50→19:40)
[2019-12-19] MEDS: PANTOPRAZOLE 40 MG TABLET PO SCH ×3 (10:11→20:28)
[2019-12-19] MEDS: ASPIRIN EC 81 MG TABLET PO SCH ×2 (10:15→20:28)
[2019-12-19] MEDS: GABAPENTIN 400 MG CAPSULE PO SCH ×3 (10:15→20:27)
[2019-12-19] MEDS: FLUoxetine 20 MG CAPSULE PO SCH (10:15)
[2019-12-19] MEDS: DOCUSATE SODIUM 100 MG CAPSULE PO SCH ×2 (10:16→20:28)
[2019-12-19] MEDS: LOSARTAN 50 MG TABLET PO SCH ×2 (10:16→20:27)
[2019-12-19] MEDS: FUROSEMIDE 40 MG TABLET PO SCH (10:16)
[2019-12-19] MEDS: MULTIVITAMIN (OCUVITE) TABLET PO SCH ×2 (10:16→20:27)
[2019-12-19] MEDS: MULTIVITAMIN (CENTRUM) TABLET PO SCH (10:17)
[2019-12-19] MEDS: FLUCONAZOLE 100 MG TABLET PO SCH (10:19)
[2019-12-19] MEDS: MONTELUKAST 10 MG TABLET PO SCH (20:28)
[2019-12-19] MEDS: SIMVASTATIN 20 MG TABLET PO SCH (20:28)
[2019-12-20] MEDS: MEROPENEM 500 MG in SODIUM CHLORIDE 0.9% 100 ML IV SCH ×4 (02:17→21:41)
[2019-12-20 05:48] LABS: Basophils # 0.1 10*3/uL (0.0-0.2); Basophils % 0.7 % (0.0-0.8); Eosinophils # 0.3 10*3/uL (0.0-0.87); Eosinophils % 4.5 % (0.00-10.9); Hematocrit 29.2 VOL% (35.7-47.0); Hemoglobin 9.5 GM/DL (12.0-16.0); Immature Granulocytes % 1.8 %; Immature Granulocytes Absolute 0.13 #; Lymphocytes # 0.9 10*3/uL (1.4-4.0); Lymphocytes % 12.5 % (21.3-54.2); Mean Corpuscular HGB Conc 32.5 GM/DL (32-36); Mean Corpuscular Volume 87.4 FL (87-102); Mean Platelet Volume 10.4 FL (9.6-12.0); Monocytes % 10.1 % (1.7-12.7); Neutrophils % 70.4 % (38.7-73.9); Platelet Count 227 T/CUMM (130-400); Red Blood Count 3.34 MC/CUMM (3.8-5.5); Red Cell Distribution Width 14.4 % (9.3-17.3); White Blood Count 7.4 T/CUMM (4-12)
[2019-12-20] MEDS: LEVOTHYROXINE 125 MCG TABLET PO SCH (05:55)
[2019-12-20 06:11] LABS: Calcium 8.4 MG/DL (8.5-10.1); Osmolality,Calculated 277.4 MOS/KG (273-304)
[2019-12-20] MEDS: BUDESONIDE 0.5 MG/2 ML NEB RESP TX SCH ×2 (07:48→20:00)
[2019-12-20] MEDS: ARFORMOTEROL 15 MCG/2 ML NEB RESP TX SCH ×2 (07:48→20:00)
[2019-12-20] MEDS: ASPIRIN EC 81 MG TABLET PO SCH ×2 (08:57→21:40)
[2019-12-20] MEDS: MULTIVITAMIN (OCUVITE) TABLET PO SCH ×2 (08:57→21:39)
[2019-12-20] MEDS: DOCUSATE SODIUM 100 MG CAPSULE PO SCH ×2 (08:57→21:42)
[2019-12-20] MEDS: LOSARTAN 50 MG TABLET PO SCH ×2 (08:57→21:40)
[2019-12-20] MEDS: FLUCONAZOLE 100 MG TABLET PO SCH (08:57)
[2019-12-20] MEDS: FUROSEMIDE 40 MG TABLET PO SCH (08:57)
[2019-12-20] MEDS: FLUoxetine 20 MG CAPSULE PO SCH (08:58)
[2019-12-20] MEDS: GABAPENTIN 400 MG CAPSULE PO SCH ×3 (08:58→21:39)
[2019-12-20] MEDS: POTASSIUM CHLORIDE 20 MEQ TABLET PO PRN ×3 (08:58→14:50)
[2019-12-20] MEDS: PANTOPRAZOLE 40 MG TABLET PO SCH ×2 (08:58→21:40)
[2019-12-20] MEDS: MULTIVITAMIN (CENTRUM) TABLET PO SCH (09:12)
[2019-12-20] MEDS: MONTELUKAST 10 MG TABLET PO SCH (21:40)
[2019-12-20] MEDS: SIMVASTATIN 20 MG TABLET PO SCH (21:40)
[2019-12-21] MEDS: MEROPENEM 500 MG in SODIUM CHLORIDE 0.9% 100 ML IV SCH ×2 (02:29→09:38)
[2019-12-21 03:48] VITALS: BP 163/57
[2019-12-21] MEDS: LEVOTHYROXINE 125 MCG TABLET PO SCH (05:59)
[2019-12-21] MEDS: BUDESONIDE 0.5 MG/2 ML NEB RESP TX SCH (08:36)
[2019-12-21] MEDS: ARFORMOTEROL 15 MCG/2 ML NEB RESP TX SCH (08:36)
[2019-12-21] MEDS: ASPIRIN EC 81 MG TABLET PO SCH (09:50)
[2019-12-21] MEDS: DOCUSATE SODIUM 100 MG CAPSULE PO SCH (09:50)
[2019-12-21] MEDS: MULTIVITAMIN (CENTRUM) TABLET PO SCH (09:50)
[2019-12-21] MEDS: LOSARTAN 50 MG TABLET PO SCH (09:51)
[2019-12-21] MEDS: GABAPENTIN 400 MG CAPSULE PO SCH (09:52)
[2019-12-21] MEDS: FLUCONAZOLE 100 MG TABLET PO SCH (09:52)
[2019-12-21] MEDS: MULTIVITAMIN (OCUVITE) TABLET PO SCH (09:53)
[2019-12-21] MEDS: PANTOPRAZOLE 40 MG TABLET PO SCH (09:53)
[2019-12-21] MEDS: FLUoxetine 20 MG CAPSULE PO SCH (09:54)
[2019-12-21] MEDS: FUROSEMIDE 40 MG TABLET PO SCH (09:56)
== END 2019-12-21 10:49 | disposition home health service (06) | DRG 690 ==
LOC: EDUNIT# → N.ED 16:00 → N.EDINP 17:34 → N.TELES 18:24
PROVIDERS: ADMIT Family Medicine; ATTEND Family Medicine

== ENCOUNTER 2020-06-11 15:57 | Inpatient (IN) ==
[2020-06-11] MEDS ORDERED: cefTRIAXone 1,000 MG in SODIUM CHLORIDE 0.9% 100 ML IV STA (16:13)
[2020-06-11] MEDS ORDERED: methylPREDNISolone SOD SUC 125 MG/2 ML VIAL IV STA (16:13)
[2020-06-11] MEDS ORDERED: ALBUTEROL/IPRATROPIUM 3 ML NEB RESP TX STA (16:13)
[2020-06-11 17:01] LABS: Basophils % 0.2 % (0.0-0.8); Hematocrit 35.4 VOL% (35.7-47.0); Hemoglobin 11.1 GM/DL (12.0-16.0); Immature Granulocytes % 0.6 %; Immature Granulocytes Absolute 0.05 #; Lymphocytes # 0.5 10*3/uL (1.4-4.0); Lymphocytes % 5.1 % (21.3-54.2); Mean Corpuscular HGB Conc 31.4 GM/DL (32-36); Mean Corpuscular Volume 86.8 FL (87-102); Mean Platelet Volume 10.3 FL (9.6-12.0); Monocytes % 5.1 % (1.7-12.7); Platelet Count 281 T/CUMM (130-400); Red Blood Count 4.08 MC/CUMM (3.8-5.5); Red Cell Distribution Width 15.6 % (9.3-17.3); White Blood Count 8.9 T/CUMM (4-12)
[2020-06-11 17:19] LABS: Albumin 3.5 G/DL (3.4-5.0); Bilirubin,Total 0.6 MG/DL (0.2-1.0); Calcium 8.5 MG/DL (8.5-10.1); Osmolality,Calculated 280.5 MOS/KG (273-304); Potassium 3.7 MMOL/L (3.5-5.1); Total Protein 7.6 G/DL (5.0-7.5)
[2020-06-11] MEDS ORDERED: ONDANSETRON 4 MG/2 ML VIAL IV PRN (17:43)
[2020-06-11] MEDS ORDERED: ACETAMINOPHEN 325 MG TABLET PO PRN (17:43)
[2020-06-11] MEDS ORDERED: SODIUM CHLORIDE 0.45% 1,000 ML IV SCH (18:00)
[2020-06-11] MEDS: ARFORMOTEROL 15 MCG/2 ML NEB RESP TX SCH (20:20)
[2020-06-11] MEDS: ALBUTEROL/IPRATROPIUM 3 ML NEB RESP TX SCH ×2 (20:20→23:01)
[2020-06-11] MEDS: LEVOFLOXACIN INJ 500 MG in PREMIX 1 EACH IV SCH (21:12)
[2020-06-11] MEDS: DOCUSATE SODIUM 100 MG CAPSULE PO SCH (21:13)
[2020-06-11] MEDS: MAGNESIUM OXIDE 400 MG TABLET PO SCH (21:14)
[2020-06-11] MEDS: SELENIUM 200 MCG TABLET PO SCH (21:14)
[2020-06-11] MEDS: MONTELUKAST 10 MG TABLET PO SCH (21:15)
[2020-06-11] MEDS: GABAPENTIN 400 MG CAPSULE PO SCH (21:15)
[2020-06-11] MEDS: AMITRIPTYLINE 25 MG TABLET PO SCH (21:15)
[2020-06-11] MEDS: LOSARTAN 50 MG TABLET PO SCH (21:15)
[2020-06-11] MEDS: MULTIVITAMIN (OCUVITE) TABLET PO SCH (21:15)
[2020-06-11] MEDS: ASPIRIN EC 81 MG TABLET PO SCH (21:15)
[2020-06-11] MEDS: SIMVASTATIN 20 MG TABLET PO SCH (21:18)
[2020-06-11] MEDS: rOPINIRole 0.25 MG TABLET PO SCH (22:25)
[2020-06-12] MEDS: methylPREDNISolone SOD SUC 40 MG/1 ML VIAL IV SCH ×3 (02:09→17:14)
[2020-06-12] MEDS: ALBUTEROL/IPRATROPIUM 3 ML NEB RESP TX SCH ×4 (03:40→15:33)
[2020-06-12] MEDS: LEVOTHYROXINE 125 MCG TABLET PO SCH (06:04)
[2020-06-12] MEDS: ARFORMOTEROL 15 MCG/2 ML NEB RESP TX SCH (08:29)
[2020-06-12] MEDS: POTASSIUM CHLORIDE 10 MEQ TABLET PO SCH (10:02)
[2020-06-12] MEDS: FLUoxetine 20 MG CAPSULE PO SCH (10:02)
[2020-06-12] MEDS: ASPIRIN EC 81 MG TABLET PO SCH ×2 (10:02→20:12)
[2020-06-12] MEDS: PANTOPRAZOLE 40 MG TABLET PO SCH (10:03)
[2020-06-12] MEDS: GABAPENTIN 400 MG CAPSULE PO SCH ×3 (10:03→20:13)
[2020-06-12] MEDS: MULTIVITAMIN (CENTRUM) TABLET PO SCH (10:04)
[2020-06-12] MEDS: FUROSEMIDE 20 MG TABLET PO SCH (10:04)
[2020-06-12] MEDS: MULTIVITAMIN (OCUVITE) TABLET PO SCH ×2 (10:05→20:14)
[2020-06-12] MEDS: DOCUSATE SODIUM 100 MG CAPSULE PO SCH ×2 (10:05→20:13)
[2020-06-12] MEDS: ROFLUMILAST 500 MCG TABLET PO SCH (10:06)
[2020-06-12] MEDS: LOSARTAN 50 MG TABLET PO SCH ×2 (10:06→20:13)
[2020-06-12] MEDS: CHOLECALCIFEROL 1,000 UNIT TABLET PO SCH (10:09)
[2020-06-12] MEDS: TRAMADOL 300 MG PO SCH (10:31)
[2020-06-12] MEDS: traMADol 50 MG TABLET PO PRN ×2 (14:18→21:59)
[2020-06-12] MEDS ORDERED: ACETYLCYSTEINE 20% 800 MG/4 ML VIAL RESP TX SCH ×2 (16:30→19:00)
[2020-06-12] MEDS ORDERED: FUROSEMIDE 40 MG/4 ML VIAL IV ONE (16:53)
[2020-06-12] MEDS: LEVOFLOXACIN INJ 500 MG in PREMIX 1 EACH IV SCH (17:13)
[2020-06-12] MEDS: ENOXAPARIN 40 MG/0.4 ML SYRINGE SUBCUT SCH (17:14)
[2020-06-12] MEDS ORDERED: BUDESONIDE 0.5 MG/2 ML NEB RESP TX SCH (19:00)
[2020-06-12] MEDS: ALBUTEROL INHALER 18 GM INH SCH (19:22)
[2020-06-12] MEDS: rOPINIRole 0.25 MG TABLET PO SCH (20:02)
[2020-06-12] MEDS: AMITRIPTYLINE 25 MG TABLET PO SCH (20:13)
[2020-06-12] MEDS: MAGNESIUM OXIDE 400 MG TABLET PO SCH (20:13)
[2020-06-12] MEDS: SIMVASTATIN 20 MG TABLET PO SCH (20:14)
[2020-06-12] MEDS: MONTELUKAST 10 MG TABLET PO SCH (20:14)
[2020-06-12] MEDS: SELENIUM 200 MCG TABLET PO SCH (20:27)
[2020-06-13] MEDS: ALBUTEROL INHALER 18 GM INH SCH ×4 (00:31→17:59)
[2020-06-13] MEDS: methylPREDNISolone SOD SUC 40 MG/1 ML VIAL IV SCH ×3 (01:02→17:56)
[2020-06-13] MEDS: hydrALAZINE 20 MG/1 ML VIAL IV PRN ×2 (04:39→13:24)
[2020-06-13 05:26] LABS: Basophils % 0.1 % (0.0-0.8); Hematocrit 34.6 VOL% (35.7-47.0); Hemoglobin 10.8 GM/DL (12.0-16.0); Immature Granulocytes Absolute 0.14 #; Lymphocytes # 0.6 10*3/uL (1.4-4.0); Lymphocytes % 4.4 % (21.3-54.2); Mean Corpuscular HGB Conc 31.2 GM/DL (32-36); Mean Corpuscular Volume 86.9 FL (87-102); Mean Platelet Volume 10.3 FL (9.6-12.0); Monocytes % 6.3 % (1.7-12.7); Neutrophils % 88.2 % (38.7-73.9); Platelet Count 300 T/CUMM (130-400); Red Blood Count 3.98 MC/CUMM (3.8-5.5); Red Cell Distribution Width 15.7 % (9.3-17.3); White Blood Count 13.6 T/CUMM (4-12)
[2020-06-13 05:45] LABS: Hypochromasia 2+; Lymphocytes 2 % (20-55); Microcytosis 1+; Myelocytes 1 %; Segmented Neutrophils 92 % (50-85); Total Cells Counted 100
[2020-06-13 05:46] LABS: Platelet Estimate Normal
[2020-06-13 05:50] LABS: Albumin 2.9 G/DL (3.4-5.0); Bilirubin,Total 0.6 MG/DL (0.2-1.0); Calcium 8.6 MG/DL (8.5-10.1); Osmolality,Calculated 277.8 MOS/KG (273-304); Potassium 3.8 MMOL/L (3.5-5.1); Total Protein 6.9 G/DL (5.0-7.5)
[2020-06-13] MEDS: LEVOTHYROXINE 125 MCG TABLET PO SCH (05:59)
[2020-06-13] MEDS: GABAPENTIN 400 MG CAPSULE PO SCH ×3 (09:18→20:22)
[2020-06-13] MEDS: POTASSIUM CHLORIDE 10 MEQ TABLET PO SCH (09:18)
[2020-06-13] MEDS: ROFLUMILAST 500 MCG TABLET PO SCH (09:18)
[2020-06-13] MEDS: ASPIRIN EC 81 MG TABLET PO SCH ×2 (09:18→20:23)
[2020-06-13] MEDS: FUROSEMIDE 20 MG TABLET PO SCH (09:18)
[2020-06-13] MEDS: MULTIVITAMIN (CENTRUM) TABLET PO SCH (09:18)
[2020-06-13] MEDS: DOCUSATE SODIUM 100 MG CAPSULE PO SCH ×2 (09:18→20:24)
[2020-06-13] MEDS: LOSARTAN 50 MG TABLET PO SCH ×2 (09:18→20:23)
[2020-06-13] MEDS: PANTOPRAZOLE 40 MG TABLET PO SCH (09:19)
[2020-06-13] MEDS: CHOLECALCIFEROL 1,000 UNIT TABLET PO SCH (09:19)
[2020-06-13] MEDS: MULTIVITAMIN (OCUVITE) TABLET PO SCH ×2 (09:19→20:22)
[2020-06-13] MEDS: TRAMADOL 300 MG PO SCH (09:19)
[2020-06-13] MEDS: FLUoxetine 20 MG CAPSULE PO SCH (09:19)
[2020-06-13] MEDS: traMADol 50 MG TABLET PO PRN (09:20)
[2020-06-13] MEDS: ALBUTEROL 2.5 MG/3 ML NEB RESP TX PRN ×2 (10:50→15:15)
[2020-06-13] MEDS: ENOXAPARIN 40 MG/0.4 ML SYRINGE SUBCUT SCH (17:55)
[2020-06-13] MEDS: LEVOFLOXACIN INJ 500 MG in PREMIX 1 EACH IV SCH (17:55)
[2020-06-13] MEDS: ALBUTEROL 2.5 MG/3 ML NEB RESP TX SCH ×3 (19:25→21:04)
[2020-06-13] MEDS: rOPINIRole 0.25 MG TABLET PO SCH (20:22)
[2020-06-13] MEDS: MAGNESIUM OXIDE 400 MG TABLET PO SCH (20:22)
[2020-06-13] MEDS: MONTELUKAST 10 MG TABLET PO SCH (20:22)
[2020-06-13] MEDS: SELENIUM 200 MCG TABLET PO SCH (20:22)
[2020-06-13] MEDS: SIMVASTATIN 20 MG TABLET PO SCH (20:23)
[2020-06-13] MEDS: AMITRIPTYLINE 25 MG TABLET PO SCH (20:23)
[2020-06-14] MEDS: ALBUTEROL INHALER 18 GM INH SCH ×4 (02:10→19:04)
[2020-06-14] MEDS: methylPREDNISolone SOD SUC 40 MG/1 ML VIAL IV SCH ×3 (02:10→18:30)
[2020-06-14] MEDS: LEVOTHYROXINE 125 MCG TABLET PO SCH (06:13)
[2020-06-14] MEDS: ALBUTEROL 2.5 MG/3 ML NEB RESP TX SCH ×4 (07:36→19:19)
[2020-06-14] MEDS: ROFLUMILAST 500 MCG TABLET PO SCH (09:48)
[2020-06-14] MEDS: PANTOPRAZOLE 40 MG TABLET PO SCH (09:48)
[2020-06-14] MEDS: LOSARTAN 50 MG TABLET PO SCH ×2 (09:48→21:23)
[2020-06-14] MEDS: ASPIRIN EC 81 MG TABLET PO SCH ×2 (09:56→21:22)
[2020-06-14] MEDS: DOCUSATE SODIUM 100 MG CAPSULE PO SCH ×2 (09:56→21:40)
[2020-06-14] MEDS: MULTIVITAMIN (CENTRUM) TABLET PO SCH (09:56)
[2020-06-14] MEDS: MULTIVITAMIN (OCUVITE) TABLET PO SCH ×2 (09:58→21:23)
[2020-06-14] MEDS: GABAPENTIN 400 MG CAPSULE PO SCH ×3 (09:58→21:24)
[2020-06-14] MEDS: CHOLECALCIFEROL 1,000 UNIT TABLET PO SCH (09:59)
[2020-06-14] MEDS ORDERED: MEPERIDINE 50 MG/1 ML VIAL IV ONE (12:30)
[2020-06-14] MEDS ORDERED: PROMETHAZINE 25 MG/1 ML VIAL IM ONE (12:30)
[2020-06-14] MEDS: TRAMADOL 300 MG PO SCH (13:33)
[2020-06-14] MEDS: FLUoxetine 20 MG CAPSULE PO SCH (13:33)
[2020-06-14] MEDS: POTASSIUM CHLORIDE 10 MEQ TABLET PO SCH (13:33)
[2020-06-14] MEDS: FUROSEMIDE 20 MG TABLET PO SCH (13:33)
[2020-06-14] MEDS: ENOXAPARIN 40 MG/0.4 ML SYRINGE SUBCUT SCH (17:30)
[2020-06-14] MEDS: LEVOFLOXACIN INJ 500 MG in PREMIX 1 EACH IV SCH (17:30)
[2020-06-14] MEDS: DORNASE ALFA 2.5 MG/2.5 ML VIAL RESP TX SCH (19:19)
[2020-06-14] MEDS: MAGNESIUM OXIDE 400 MG TABLET PO SCH (21:22)
[2020-06-14] MEDS: AMITRIPTYLINE 25 MG TABLET PO SCH (21:23)
[2020-06-14] MEDS: rOPINIRole 0.25 MG TABLET PO SCH (21:23)
[2020-06-14] MEDS: MONTELUKAST 10 MG TABLET PO SCH (21:23)
[2020-06-14] MEDS: SELENIUM 200 MCG TABLET PO SCH (21:24)
[2020-06-14] MEDS: SIMVASTATIN 20 MG TABLET PO SCH (21:25)
[2020-06-15] MEDS: methylPREDNISolone SOD SUC 40 MG/1 ML VIAL IV SCH ×3 (02:13→18:08)
[2020-06-15] MEDS: ALBUTEROL INHALER 18 GM INH SCH ×4 (02:41→20:00)
[2020-06-15] MEDS: LEVOTHYROXINE 125 MCG TABLET PO SCH (06:10)
[2020-06-15] MEDS: ALBUTEROL 2.5 MG/3 ML NEB RESP TX SCH ×4 (07:23→19:08)
[2020-06-15] MEDS: DORNASE ALFA 2.5 MG/2.5 ML VIAL RESP TX SCH ×2 (07:29→19:08)
[2020-06-15] MEDS: MULTIVITAMIN (OCUVITE) TABLET PO SCH ×2 (08:49→21:52)
[2020-06-15] MEDS: CHOLECALCIFEROL 1,000 UNIT TABLET PO SCH (08:49)
[2020-06-15] MEDS: MULTIVITAMIN (CENTRUM) TABLET PO SCH (08:49)
[2020-06-15] MEDS: GABAPENTIN 400 MG CAPSULE PO SCH ×3 (08:49→21:52)
[2020-06-15] MEDS: LOSARTAN 50 MG TABLET PO SCH ×2 (08:49→21:52)
[2020-06-15] MEDS: traMADol 50 MG TABLET PO PRN (08:50)
[2020-06-15] MEDS: FUROSEMIDE 20 MG TABLET PO SCH (08:50)
[2020-06-15] MEDS: DOCUSATE SODIUM 100 MG CAPSULE PO SCH ×2 (08:50→21:51)
[2020-06-15] MEDS: ROFLUMILAST 500 MCG TABLET PO SCH (08:50)
[2020-06-15] MEDS: PANTOPRAZOLE 40 MG TABLET PO SCH (08:50)
[2020-06-15] MEDS: FLUoxetine 20 MG CAPSULE PO SCH (08:50)
[2020-06-15] MEDS: POTASSIUM CHLORIDE 10 MEQ TABLET PO SCH (08:50)
[2020-06-15] MEDS: ASPIRIN EC 81 MG TABLET PO SCH ×2 (08:59→21:51)
[2020-06-15] MEDS: TRAMADOL 300 MG PO SCH (08:59)
[2020-06-15] MEDS: cefTRIAXone 1,000 MG in SYRINGE 1 EACH IV SCH (15:22)
[2020-06-15] MEDS: LIDOCAINE 2% VISCOUS 100 ML BOTTLE SWISH/SPIT PRN ×2 (16:59→22:09)
[2020-06-15] MEDS: LEVOFLOXACIN INJ 500 MG in PREMIX 1 EACH IV SCH (18:08)
[2020-06-15] MEDS: ENOXAPARIN 40 MG/0.4 ML SYRINGE SUBCUT SCH (18:08)
[2020-06-15] MEDS: MAGNESIUM OXIDE 400 MG TABLET PO SCH (21:52)
[2020-06-15] MEDS: AMITRIPTYLINE 25 MG TABLET PO SCH (21:52)
[2020-06-15] MEDS: SIMVASTATIN 20 MG TABLET PO SCH (21:53)
[2020-06-15] MEDS: MONTELUKAST 10 MG TABLET PO SCH (21:53)
[2020-06-15] MEDS: rOPINIRole 0.25 MG TABLET PO SCH (21:53)
[2020-06-15] MEDS: SELENIUM 200 MCG TABLET PO SCH (21:53)
[2020-06-16] MEDS: ALBUTEROL INHALER 18 GM INH SCH ×4 (00:40→19:30)
[2020-06-16] MEDS: methylPREDNISolone SOD SUC 40 MG/1 ML VIAL IV SCH ×3 (02:01→17:50)
[2020-06-16] MEDS: LEVOTHYROXINE 125 MCG TABLET PO SCH (07:22)
[2020-06-16] MEDS: DORNASE ALFA 2.5 MG/2.5 ML VIAL RESP TX SCH ×2 (07:42→20:20)
[2020-06-16] MEDS: ALBUTEROL 2.5 MG/3 ML NEB RESP TX SCH ×6 (07:42→20:20)
[2020-06-16] MEDS: MULTIVITAMIN (OCUVITE) TABLET PO SCH ×2 (09:21→21:47)
[2020-06-16] MEDS: ASPIRIN EC 81 MG TABLET PO SCH ×2 (09:21→21:45)
[2020-06-16] MEDS: PANTOPRAZOLE 40 MG TABLET PO SCH (09:22)
[2020-06-16] MEDS: traMADol 50 MG TABLET PO PRN ×2 (09:22→23:01)
[2020-06-16] MEDS: CHOLECALCIFEROL 1,000 UNIT TABLET PO SCH (09:22)
[2020-06-16] MEDS: FLUoxetine 20 MG CAPSULE PO SCH (09:22)
[2020-06-16] MEDS: DOCUSATE SODIUM 100 MG CAPSULE PO SCH ×2 (09:23→21:46)
[2020-06-16] MEDS: FUROSEMIDE 20 MG TABLET PO SCH (09:23)
[2020-06-16] MEDS: MULTIVITAMIN (CENTRUM) TABLET PO SCH (09:23)
[2020-06-16] MEDS: GABAPENTIN 400 MG CAPSULE PO SCH ×3 (09:23→21:46)
[2020-06-16] MEDS: LOSARTAN 50 MG TABLET PO SCH ×2 (09:23→21:48)
[2020-06-16] MEDS: POTASSIUM CHLORIDE 10 MEQ TABLET PO SCH (09:23)
[2020-06-16] MEDS: ROFLUMILAST 500 MCG TABLET PO SCH (09:29)
[2020-06-16] MEDS: TRAMADOL 300 MG PO SCH (11:50)
[2020-06-16] MEDS: cefTRIAXone 1,000 MG in SYRINGE 1 EACH IV SCH (14:44)
[2020-06-16] MEDS: LEVOFLOXACIN INJ 500 MG in PREMIX 1 EACH IV SCH (17:28)
[2020-06-16] MEDS: ENOXAPARIN 40 MG/0.4 ML SYRINGE SUBCUT SCH (17:28)
[2020-06-16] MEDS: MONTELUKAST 10 MG TABLET PO SCH (21:46)
[2020-06-16] MEDS: SELENIUM 200 MCG TABLET PO SCH (21:47)
[2020-06-16] MEDS: MAGNESIUM OXIDE 400 MG TABLET PO SCH (21:48)
[2020-06-16] MEDS: AMITRIPTYLINE 25 MG TABLET PO SCH (21:48)
[2020-06-16] MEDS: rOPINIRole 0.25 MG TABLET PO SCH (21:49)
[2020-06-16] MEDS: SIMVASTATIN 20 MG TABLET PO SCH (21:49)
[2020-06-17] MEDS: methylPREDNISolone SOD SUC 40 MG/1 ML VIAL IV SCH ×3 (01:54→18:37)
[2020-06-17] MEDS: ALBUTEROL INHALER 18 GM INH SCH ×2 (05:46→08:00)
[2020-06-17] MEDS: ALBUTEROL 2.5 MG/3 ML NEB RESP TX SCH ×4 (07:00→20:12)
[2020-06-17] MEDS: DORNASE ALFA 2.5 MG/2.5 ML VIAL RESP TX SCH ×2 (07:05→20:18)
[2020-06-17] MEDS: LEVOTHYROXINE 125 MCG TABLET PO SCH (07:06)
[2020-06-17 08:26] LABS: Basophils % 0.1 % (0.0-0.8); Eosinophils % 0.1 % (0.00-10.9); Hematocrit 30.5 VOL% (35.7-47.0); Hemoglobin 9.7 GM/DL (12.0-16.0); Immature Granulocytes Absolute 0.19 #; Lymphocytes # 0.7 10*3/uL (1.4-4.0); Lymphocytes % 6.8 % (21.3-54.2); Mean Corpuscular HGB Conc 31.8 GM/DL (32-36); Mean Corpuscular Volume 86.4 FL (87-102); Mean Platelet Volume 10.3 FL (9.6-12.0); Monocytes % 6.2 % (1.7-12.7); Neutrophils % 84.8 % (38.7-73.9); Platelet Count 278 T/CUMM (130-400); Red Blood Count 3.53 MC/CUMM (3.8-5.5); Red Cell Distribution Width 15.4 % (9.3-17.3); White Blood Count 9.5 T/CUMM (4-12)
[2020-06-17 08:46] LABS: Calcium 7.9 MG/DL (8.5-10.1); Osmolality,Calculated 280.7 MOS/KG (273-304)
[2020-06-17] MEDS: ERTAPENEM 1,000 MG in SODIUM CHLORIDE 0.9% 100 ML IV SCH (10:43)
[2020-06-17] MEDS: FLUoxetine 20 MG CAPSULE PO SCH (10:44)
[2020-06-17] MEDS: LOSARTAN 50 MG TABLET PO SCH ×2 (10:44→21:24)
[2020-06-17] MEDS: FUROSEMIDE 20 MG TABLET PO SCH (10:45)
[2020-06-17] MEDS: POTASSIUM CHLORIDE 10 MEQ TABLET PO SCH (10:45)
[2020-06-17] MEDS: GABAPENTIN 400 MG CAPSULE PO SCH ×3 (10:45→21:24)
[2020-06-17] MEDS: MULTIVITAMIN (OCUVITE) TABLET PO SCH ×2 (10:45→21:24)
[2020-06-17] MEDS: DOCUSATE SODIUM 100 MG CAPSULE PO SCH ×2 (10:45→21:24)
[2020-06-17] MEDS: MULTIVITAMIN (CENTRUM) TABLET PO SCH (10:45)
[2020-06-17] MEDS: PANTOPRAZOLE 40 MG TABLET PO SCH (10:46)
[2020-06-17] MEDS: ASPIRIN EC 81 MG TABLET PO SCH ×2 (10:48→21:24)
[2020-06-17] MEDS: CHOLECALCIFEROL 1,000 UNIT TABLET PO SCH (10:48)
[2020-06-17] MEDS: ROFLUMILAST 500 MCG TABLET PO SCH (10:48)
[2020-06-17] MEDS: TRAMADOL 300 MG PO SCH (10:48)
[2020-06-17] MEDS: traMADol 50 MG TABLET PO PRN (10:53)
[2020-06-17] MEDS: ENOXAPARIN 40 MG/0.4 ML SYRINGE SUBCUT SCH (18:37)
[2020-06-17] MEDS: LEVOFLOXACIN INJ 500 MG in PREMIX 1 EACH IV SCH (18:38)
[2020-06-17] MEDS: MAGNESIUM OXIDE 400 MG TABLET PO SCH (21:23)
[2020-06-17] MEDS: rOPINIRole 0.25 MG TABLET PO SCH (21:23)
[2020-06-17] MEDS: MONTELUKAST 10 MG TABLET PO SCH (21:24)
[2020-06-17] MEDS: SELENIUM 200 MCG TABLET PO SCH (21:24)
[2020-06-17] MEDS: SIMVASTATIN 20 MG TABLET PO SCH (21:24)
[2020-06-17] MEDS: AMITRIPTYLINE 25 MG TABLET PO SCH (21:24)
[2020-06-18] MEDS: methylPREDNISolone SOD SUC 40 MG/1 ML VIAL IV SCH ×3 (02:07→19:02)
[2020-06-18] MEDS: LEVOTHYROXINE 125 MCG TABLET PO SCH (06:18)
[2020-06-18] MEDS: ALBUTEROL 2.5 MG/3 ML NEB RESP TX SCH ×4 (07:34→19:12)
[2020-06-18] MEDS: DORNASE ALFA 2.5 MG/2.5 ML VIAL RESP TX SCH ×2 (07:40→19:12)
[2020-06-18] MEDS: ERTAPENEM 1,000 MG in SODIUM CHLORIDE 0.9% 100 ML IV SCH (09:55)
[2020-06-18] MEDS: DOCUSATE SODIUM 100 MG CAPSULE PO SCH ×2 (10:55→21:08)
[2020-06-18] MEDS: FLUoxetine 20 MG CAPSULE PO SCH (10:55)
[2020-06-18] MEDS: LOSARTAN 50 MG TABLET PO SCH ×2 (10:55→21:08)
[2020-06-18] MEDS: FUROSEMIDE 20 MG TABLET PO SCH (10:55)
[2020-06-18] MEDS: PANTOPRAZOLE 40 MG TABLET PO SCH (10:55)
[2020-06-18] MEDS: ROFLUMILAST 500 MCG TABLET PO SCH (10:56)
[2020-06-18] MEDS: POTASSIUM CHLORIDE 10 MEQ TABLET PO SCH (10:59)
[2020-06-18] MEDS: ASPIRIN EC 81 MG TABLET PO SCH ×2 (10:59→21:09)
[2020-06-18] MEDS: CHOLECALCIFEROL 1,000 UNIT TABLET PO SCH (10:59)
[2020-06-18] MEDS: MULTIVITAMIN (CENTRUM) TABLET PO SCH (10:59)
[2020-06-18] MEDS: GABAPENTIN 400 MG CAPSULE PO SCH ×3 (10:59→21:08)
[2020-06-18] MEDS: MULTIVITAMIN (OCUVITE) TABLET PO SCH ×2 (10:59→21:09)
[2020-06-18] MEDS: TRAMADOL 300 MG PO SCH (16:54)
[2020-06-18] MEDS: ENOXAPARIN 40 MG/0.4 ML SYRINGE SUBCUT SCH (19:01)
[2020-06-18] MEDS: LEVOFLOXACIN INJ 500 MG in PREMIX 1 EACH IV SCH (19:06)
[2020-06-18] MEDS: MONTELUKAST 10 MG TABLET PO SCH (21:08)
[2020-06-18] MEDS: rOPINIRole 0.25 MG TABLET PO SCH (21:09)
[2020-06-18] MEDS: SIMVASTATIN 20 MG TABLET PO SCH (21:09)
[2020-06-18] MEDS: AMITRIPTYLINE 25 MG TABLET PO SCH (21:09)
[2020-06-18] MEDS: SELENIUM 200 MCG TABLET PO SCH (21:09)
[2020-06-18] MEDS: traMADol 50 MG TABLET PO PRN (21:09)
[2020-06-18] MEDS: MAGNESIUM OXIDE 400 MG TABLET PO SCH (21:10)
[2020-06-19] MEDS: methylPREDNISolone SOD SUC 40 MG/1 ML VIAL IV SCH ×3 (02:05→18:25)
[2020-06-19] MEDS: LEVOTHYROXINE 125 MCG TABLET PO SCH (06:06)
[2020-06-19 06:44] LABS: Basophils % 0.2 % (0.0-0.8); Eosinophils # 0.1 10*3/uL (0.0-0.87); Eosinophils % 0.5 % (0.00-10.9); Hematocrit 30.2 VOL% (35.7-47.0); Hemoglobin 9.3 GM/DL (12.0-16.0); Immature Granulocytes % 2.3 %; Immature Granulocytes Absolute 0.27 #; Lymphocytes # 1.1 10*3/uL (1.4-4.0); Lymphocytes % 9.5 % (21.3-54.2); Mean Corpuscular HGB Conc 30.8 GM/DL (32-36); Mean Corpuscular Volume 88.6 FL (87-102); Mean Platelet Volume 10.9 FL (9.6-12.0); Monocytes % 5.9 % (1.7-12.7); Neutrophils % 81.6 % (38.7-73.9); Platelet Count 278 T/CUMM (130-400); Red Blood Count 3.41 MC/CUMM (3.8-5.5); Red Cell Distribution Width 15.1 % (9.3-17.3); White Blood Count 11.6 T/CUMM (4-12)
[2020-06-19] MEDS: ALBUTEROL 2.5 MG/3 ML NEB RESP TX SCH ×4 (07:20→19:46)
[2020-06-19 07:23] LABS: Albumin 2.5 G/DL (3.4-5.0); Bilirubin,Total 0.6 MG/DL (0.2-1.0); Calcium 8.3 MG/DL (8.5-10.1); Osmolality,Calculated 277.5 MOS/KG (273-304); Potassium 3.8 MMOL/L (3.5-5.1); Total Protein 5.7 G/DL (6.4-8.2)
[2020-06-19 07:26] LABS: Thyroid Stimulating Hormone 3.45 uIU/ml (0.358-3.74)
[2020-06-19] MEDS: DORNASE ALFA 2.5 MG/2.5 ML VIAL RESP TX SCH ×2 (07:27→19:46)
[2020-06-19] MEDS: ERTAPENEM 1,000 MG in SODIUM CHLORIDE 0.9% 100 ML IV SCH (10:04)
[2020-06-19] MEDS: GABAPENTIN 400 MG CAPSULE PO SCH ×3 (10:13→20:39)
[2020-06-19] MEDS: LOSARTAN 50 MG TABLET PO SCH ×2 (10:13→20:39)
[2020-06-19] MEDS: MULTIVITAMIN (CENTRUM) TABLET PO SCH (10:13)
[2020-06-19] MEDS: POTASSIUM CHLORIDE 10 MEQ TABLET PO SCH (10:13)
[2020-06-19] MEDS: FUROSEMIDE 20 MG TABLET PO SCH (10:13)
[2020-06-19] MEDS: ASPIRIN EC 81 MG TABLET PO SCH ×2 (10:13→20:39)
[2020-06-19] MEDS: FLUoxetine 20 MG CAPSULE PO SCH (10:14)
[2020-06-19] MEDS: CHOLECALCIFEROL 1,000 UNIT TABLET PO SCH (10:14)
[2020-06-19] MEDS: DOCUSATE SODIUM 100 MG CAPSULE PO SCH ×2 (10:14→20:38)
[2020-06-19] MEDS: ROFLUMILAST 500 MCG TABLET PO SCH (10:14)
[2020-06-19] MEDS: MULTIVITAMIN (OCUVITE) TABLET PO SCH ×2 (10:14→20:38)
[2020-06-19] MEDS: PANTOPRAZOLE 40 MG TABLET PO SCH (10:14)
[2020-06-19] MEDS: TRAMADOL 300 MG PO SCH (11:44)
[2020-06-19] MEDS: ENOXAPARIN 40 MG/0.4 ML SYRINGE SUBCUT SCH (18:25)
[2020-06-19] MEDS: SIMVASTATIN 20 MG TABLET PO SCH (20:38)
[2020-06-19] MEDS: SELENIUM 200 MCG TABLET PO SCH (20:38)
[2020-06-19] MEDS: MAGNESIUM OXIDE 400 MG TABLET PO SCH (20:38)
[2020-06-19] MEDS: AMITRIPTYLINE 25 MG TABLET PO SCH (20:38)
[2020-06-19] MEDS: rOPINIRole 0.25 MG TABLET PO SCH (20:38)
[2020-06-19] MEDS: MONTELUKAST 10 MG TABLET PO SCH (20:39)
[2020-06-19] MEDS: traMADol 50 MG TABLET PO PRN (20:39)
[2020-06-20] MEDS: methylPREDNISolone SOD SUC 40 MG/1 ML VIAL IV SCH ×2 (02:15→11:13)
[2020-06-20 05:05] LABS: Basophils % 0.2 % (0.0-0.8); Eosinophils # 0.1 10*3/uL (0.0-0.87); Eosinophils % 0.5 % (0.00-10.9); Hematocrit 29.7 VOL% (35.7-47.0); Hemoglobin 9.5 GM/DL (12.0-16.0); Immature Granulocytes % 1.9 %; Immature Granulocytes Absolute 0.25 #; Lymphocytes # 1.1 10*3/uL (1.4-4.0); Lymphocytes % 8.1 % (21.3-54.2); Mean Corpuscular Volume 85.1 FL (87-102); Mean Platelet Volume 10.4 FL (9.6-12.0); Monocytes % 5.7 % (1.7-12.7); Neutrophils % 83.6 % (38.7-73.9); Platelet Count 259 T/CUMM (130-400); Red Blood Count 3.49 MC/CUMM (3.8-5.5); Red Cell Distribution Width 15.3 % (9.3-17.3); White Blood Count 12.9 T/CUMM (4-12)
[2020-06-20 05:23] LABS: Calcium 7.9 MG/DL (8.5-10.1); Osmolality,Calculated 285.3 MOS/KG (273-304); Potassium 3.9 MMOL/L (3.5-5.1)
[2020-06-20] MEDS: ALBUTEROL 2.5 MG/3 ML NEB RESP TX SCH ×3 (06:08→11:10)
[2020-06-20] MEDS: LEVOTHYROXINE 125 MCG TABLET PO SCH (06:08)
[2020-06-20] MEDS: DORNASE ALFA 2.5 MG/2.5 ML VIAL RESP TX SCH (07:16)
[2020-06-20] MEDS: FLUoxetine 20 MG CAPSULE PO SCH (11:10)
[2020-06-20] MEDS: FUROSEMIDE 20 MG TABLET PO SCH (11:10)
[2020-06-20] MEDS: MULTIVITAMIN (CENTRUM) TABLET PO SCH (11:10)
[2020-06-20] MEDS: ASPIRIN EC 81 MG TABLET PO SCH (11:10)
[2020-06-20] MEDS: GABAPENTIN 400 MG CAPSULE PO SCH (11:11)
[2020-06-20] MEDS: ROFLUMILAST 500 MCG TABLET PO SCH (11:11)
[2020-06-20] MEDS: CHOLECALCIFEROL 1,000 UNIT TABLET PO SCH (11:11)
[2020-06-20] MEDS: PANTOPRAZOLE 40 MG TABLET PO SCH (11:12)
[2020-06-20] MEDS: POTASSIUM CHLORIDE 10 MEQ TABLET PO SCH (11:12)
[2020-06-20] MEDS: LOSARTAN 50 MG TABLET PO SCH (11:12)
[2020-06-20] MEDS: MULTIVITAMIN (OCUVITE) TABLET PO SCH (11:12)
[2020-06-20] MEDS: ERTAPENEM 1,000 MG in SODIUM CHLORIDE 0.9% 100 ML IV SCH (11:12)
[2020-06-20] MEDS: DOCUSATE SODIUM 100 MG CAPSULE PO SCH (11:12)
[2020-06-20] MEDS: TRAMADOL 300 MG PO SCH (11:13)
[2020-06-20 12:01] VITALS: BP 165/71
== END 2020-06-20 13:40 | disposition home or self-care (01) | DRG 177 ==
LOC: N.ED 15:57 → N.EDINP 17:43 → N.4E 18:28 → N.2E 06-12 16:00
PROVIDERS: ADMIT Family Medicine; ATTEND Family Medicine